=== PATIENT | male | born 1960 | race African-American/Black ===

== ENCOUNTER 2018-05-09 12:59 | Inpatient (IN) | payer MEDICARE, OTHER, MEDICAID ==
[~2018-05-09] VITALS: Ht 152.4 cm; Wt 61.2 kg
[2018-05-09] VITALS (39 sets, daily range): BP systolic 74–145; BP diastolic 30–77
--- NOTE | ~2018-05-09 | EEG ---
[address] [address] EEG STUDY REPORT Name: GENIAERNESTO Room: [address] IN M.R.#: [id number] Admission: 05/09/18 Attend Phys: Maurice Gomez MD Discharge: Date of : 62 Report #: [id number] THIS REPORT FOR: //name// CC: Maurice Gomez [facility] DATE OF SERVICE: 05/17/2018 This patient's EEG was done for comparison. EEG was done by placing the electrode by standard 10-20 system of electrode placement. Both referential and sequential montages were used for recording. Background activity in this patient's EEG is about 6 Hertz and 30 microvolt. On the left side, the patient has periodic lateralizing epileptiform discharges. Photic stimulation is unremarkable. IMPRESSION: 1. Periodic lateralizing epileptiform discharges on the left side, which may be traced better, but still present in significant amount. 2. Generalized slowing consistent with encephalopathy, although that is a nonspecific finding. Thank you very much for this referral. Clinical correlation is recommended. By: 1503 [id number] Capmos MD /nt
[2018-05-09 13:18] LABS: BE -21.8 mmol/L (-2 to +3); PCO2 20.2 mmHg (35.0-45.0); PO2 > 488.8 mmHg (75.0-100.0); pH 7.089 (7.340-7.450)
[2018-05-09 13:51] LABS: MCH 30.8 pg (26.0-34.0); MCHC 28.8 g/dL (28.0-37.0); MCV 106.8 fL (80.0-100.0); NUCLEATED RBCS 0 /100WBC; PLATELET COUNT* 164 thou/uL (150-400); RBC 1.65 mil/uL (4.50-6.00); RDW-CV 19.7 % (10.5-14.5); WBC 9.5 thou/uL (4.0-11.0)
[2018-05-09 13:52] LABS: URINE BILIRUBIN NEGATIVE (Negative); URINE BLOOD TRACE (Negative); URINE CLARITY CLEAR; URINE COLOR YELLOW; URINE GLUCOSE-RANDOM 1+ (Negative); URINE KETONES NEGATIVE (Negative); URINE LEUKOCYTES-REFLEX NEGATIVE (Negative); URINE NITRITE-REFLEX NEGATIVE (Negative); URINE PROTEIN 2+ (Negative); URINE UROBILINOGEN 0.2 E.U./dl (0.2-1.0)
[2018-05-09 13:55] LABS: HEMATOCRIT 17.6 % (42.0-52.0); HEMOGLOBIN 5.1 gm/dL (14.0-18.0)
[2018-05-09 14:05] LABS: SQUAMOUS >10 Many /LPF (0-3)
[2018-05-09 14:06] LABS: BACTERIA-REFLEX 1-9 Few /HPF (None Seen); CASTS None Seen /LPF (None Seen); CRYSTALS None Seen /LPF (None Seen); MUCUS 4-6 Moderate strn/LPF (None Seen); RENAL EPITHELIAL CELLS 4-10 Moderate /LPF (None Seen); URINE RBC 3-10 Few /HPF (0-2); URINE WBC-REFLEX 0-5 Rare /HPF (0-5)
[2018-05-09 14:09] LABS: ALKALINE PHOSPHATASE 293 U/L (46-116); BUN 1 mg/dL (7-18); CHLORIDE 100 mmol/L (98-107); NT-PRO BRAIN NAT PEPTIDE > 35000 pg/mL (<300); SGOT 522 U/L (15-37); SGPT 202 U/L (30-65); SODIUM 142 mmol/L (136-145); TOTAL BILIRUBIN 1.1 mg/dL (<0.1-1.0); TOTAL PROTEIN 5.5 g/dL (6.4-8.2); TROPONIN-I LEVEL 0.36 ng/mL (<0.06)
[2018-05-09 15:10] LABS: ANION GAP 32 mmol/L (7-16); CREATININE < 0.1 mg/dL (0.6-1.3)
[2018-05-09 15:11] LABS: ALBUMIN < 0.6 g/dL (3.4-5.0)
[2018-05-09 15:15] LABS: CO2 10 mmol/L (21-32)
[2018-05-09 15:16] LABS: CALCIUM < 5.0 mg/dL (8.5-10.1); GLUCOSE < 1 mg/dL (70-99)
[2018-05-09 15:26] LABS: APTT 41.8 Seconds (25.0-31.3); INR 2.2; PROTIME 22.1 Seconds (9.20-11.50)
[2018-05-09 15:32] LABS: ABSOLUTE LYMPHOCYTES 0.7 thou/uL (0.8-5.3); ABSOLUTE MONOCYTES 1.1 thou/uL (0.0-1.2); ABSOLUTE NEUTROPHILS 7.7 thou/uL (1.6-8.1); METAMYELOCYTES 1 %; PLATELET ESTIMATE ADEQUATE
[2018-05-09 15:33] LABS: ANISOCYTOSIS 2+; MACROCYTES 1+; POLYCHROMASIA 1+
[2018-05-09 15:34] LABS: BURR CELLS 2+; OVALOCYTES 1+
[2018-05-09 15:34] LABS: CREATININE 7.8 mg/dL (0.6-1.3)
[2018-05-09 15:37] LABS: CALCIUM 8.5 mg/dL (8.5-10.1)
[2018-05-09 16:31] LABS: AMP/METHAMP Negative (Negative); BARBITURATES Negative (Negative); BENZODIAZEPINES POSITIVE (Negative); COCAINE POSITIVE (Negative); METHADONE Negative (Negative); OPIATES Negative (Negative); PCP Negative (Negative); THC Negative (Negative)
[2018-05-09 16:36] LABS: HCO3 6.2 mmol/L (22.0-26.0); PCO2 17.9 mmHg (35.0-45.0); PO2 278.9 mmHg (75.0-100.0)
--- NOTE | 2018-05-09 17:37 | EKG ---
[place] [address] ELECTROCARDIOGRAM REPORT Name: ERNESTO CORMIER Room: [address] ADM IN M.R.#: [id number] Admission: 05/09/18 Attend Phys: Maurice Gomez MD Discharge: Date of : 62 Report #: [id number] THIS REPORT FOR: //name// [facility] ED Test Date: 2018-05-09 Test Time: 13:25:01 Pat Name: ERNESTO CORMIER Department: Room: [facility] Gender: M Sharepoint Application Architect: GEOVANNA : 1960 Requested By: Jigar Guerra Order Number: [id number] MD: Konrad Du Measurements Intervals [place] Rate: 82 P: 86 [place]: 165 QRS: 70 QRSD: 95 T: -87 QT: 444 QTc: 519 Interpretive Statements Sinus rhythm Repol abnrm suggests ischemia, anterolateral Prolonged QT interval No previous ECG available for comparison Electronically Signed On 05-09-2018 17:37:40 SEARCH MARKETING COORDINATOR by Konrad Du [email or web address] <ELECTRONICALLY SIGNED> By: Konrad Du MD, [facility] 05/09/18 1737 1325 1325 Konrad uD MD, [facility] /EPI
--- NOTE | 2018-05-09 18:55 | NUR ---
PATIENT ADMITTED TO THE UNIT AT 1540. PATIENT NON-REPSONSIVE ON 1MG VERSED UPON ARRIVAL. PUPILS 3+ AND VERY SLUGGISH. PATIENT WAS SUPPOSED TO BE AT DIALYSIS AT [facility] AND WHEN HE DID NOT SHOW, THE DIALYSIS CENTER CALLED THE POLICE DEPARTMENT, WHO FOUND PATIENT DOWN IN HIS HOME. PATIENT POSITIVE FOR GI BLEED. STAT GI CONSULT CALLED IN ER. PATIENT IS NOW RECIEVING SECOND UNIT OF TWO UNITS OF BLOOD. STAT PROTONIX GTT IN ER. DR TATUM PAGED TO CONTINUE THOSE ORDERS, BUT THIS NURSE HAS NOT RECIEVED CALL BACK YET. PATIENT DIALYZING AT THIS TIME. HYPOTENSIVE, ON LEVOPHED AT MAX TO KEEP SYSTOLIC >90 AND MAP >65. SECOND PRESSOR ON STANDBY IF NEEDED. PATIENT BED LOWERED AND LOCKED. SCDS ON FOR PHARMACOLOGIC CONTRAINDICATION. PATIENT HAS TWO DAUGHTERS, CLARK AND ROSEY. CLARK IS DESIGNATED PATIENT PHOTOVOLTAIC SUBCONTRACTOR BECAUSE SHE LIVES CLOSE TO HOSPITAL, BUT BOTH WISH TO BE CALLED IN AN EMERGENCY. FAMILY UPDATED AND AGREES WITH CURRENT PLAN OF CARE. DENIES FURTHER QUESTIONS AT THIS TIME.
[2018-05-09 21:59] LABS: BE -3.8 mmol/L (-2 to +3)
[2018-05-09 22:03] LABS: PCO2 < 17.0 mmHg (35.0-45.0); PO2 207.8 mmHg (75.0-100.0); pH 7.627 (7.340-7.450)
--- NOTE | 2018-05-09 22:34 | NUR ---
CRITICAL ABG RESULTS RECEIVED, DR HERNANDEZ NOTIFIED. ORDER RECEIVED TO DECREASE VENT AC TO 14 AND DRAW ABG'S 30 MINUTES POST RATE CHANGE, CALL DR HERNANDEZ IF PH REMAINS >7.5. NEFTALI RT AT BEDSIDE CHANGING RATE AT THIS TIME.
--- NOTE | 2018-05-09 23:18 | NUR ---
HR NOTED TO BE IRREGULAR, EKG OBTAINED SHOWING A-FIB RATE 110-[address] KEMP NOTIFIED, NO NEW ORDERS. STATES IT IS LIKELY R/T LEVOPHED.
[2018-05-09 23:36] LABS: MCH 30.3 pg (26.0-34.0)
[2018-05-09 23:37] LABS: MPV 9.7 fl. (7.2-11.1); RBC 2.09 mil/uL (4.50-6.00); RDW-CV 17.4 % (10.5-14.5)
[2018-05-09 23:40] LABS: MCV 89.2 fL (80.0-100.0)
[2018-05-09 23:43] LABS: HEMATOCRIT 18.7 % (42.0-52.0); HEMOGLOBIN 6.4 gm/dL (14.0-18.0)
[2018-05-10] VITALS (56 sets, daily range): BP systolic 87–144; BP diastolic 21–71
[2018-05-10 00:02] LABS: ALBUMIN 1.7 g/dL (3.4-5.0); CALCIUM 7.6 mg/dL (8.5-10.1); CREATININE 3.8 mg/dL (0.6-1.3); POTASSIUM 3.8 mmol/L (3.5-5.1); TOTAL BILIRUBIN 1.8 mg/dL (<0.1-1.0)
[2018-05-10 00:27] LABS: BE -8.4 mmol/L (-2 to +3); HCO3 13.1 mmol/L (22.0-26.0); pH 7.567 (7.340-7.450)
[2018-05-10 00:28] LABS: PCO2 < 17.0 mmHg (35.0-45.0)
[2018-05-10 00:29] LABS: PO2 198.9 mmHg (75.0-100.0)
--- NOTE | 2018-05-10 01:14 | NUR ---
CRITICAL HBG 6.[address] TATUM, ORDER TO TRANSFUSE ONE UNIT PRBC'S.
[2018-05-10 05:45] LABS: ABSOLUTE BASOPHILS 0.1 thou/uL (0.0-0.2); ABSOLUTE EOSINOPHILS 0.1 thou/uL (0.0-0.7); ABSOLUTE LYMPHOCYTES 0.6 thou/uL (0.8-5.3); ABSOLUTE MONOCYTES 0.7 thou/uL (0.0-1.2); ABSOLUTE NEUTROPHILS 8.3 thou/uL (1.6-8.1); BASOPHILS 0.6 %; EOSINOPHILS 1.5 %; HEMATOCRIT 21.9 % (42.0-52.0); HEMOGLOBIN 7.4 gm/dL (14.0-18.0); LYMPHOCYTES 6.4 %; MCH 30.5 pg (26.0-34.0); MCHC 33.7 g/dL (28.0-37.0); MCV 90.5 fL (80.0-100.0); MONOCYTES 6.7 %; MPV 9.8 fl. (7.2-11.1); NUCLEATED RBCS 1 /100WBC; PLATELET COUNT* 72 thou/uL (150-400); POLYS 84.8 %; RBC 2.42 mil/uL (4.50-6.00); RDW-CV 17.2 % (10.5-14.5); WBC 9.8 thou/uL (4.0-11.0)
[2018-05-10 05:47] LABS: CALCIUM 7.8 mg/dL (8.5-10.1); POTASSIUM 3.8 mmol/L (3.5-5.1)
[2018-05-10 06:37] LABS: BE -13.6 mmol/L (-2 to +3); pH 7.405 (7.340-7.450)
[2018-05-10 06:39] LABS: HCO3 9.4 mmol/L (22.0-26.0); PCO2 < 17.0 mmHg (35.0-45.0); PO2 184.9 mmHg (75.0-100.0)
[2018-05-10 06:51] LABS: INR 2.6; PROTIME 26.8 Seconds (9.20-11.50)
--- NOTE | 2018-05-10 07:27 | NUR ---
SPOKE TO DR MENDOZA THIS AM, ORDERS RECEIVED FOR LABS AND EGD TODAY. ALL CRITICAL LABS CALLED TO APPROPRIATE PHYSICIANS. HYPOGLYCEMIA TREATED WITH D50 X3. COMPLETE BED BATH GIVEN. BLOOD OOZING FROM CENTRAL LINE AND PERIPHERAL IV'S, DRESSING CHANGED. PT NOTED TO HAVE LACERATION TO OCCIPITAL SCALP, NOT BLEEDING AND WELL APPROXIMATED HOWEVER IT DOES GAPE WITH PALPATION. WOUND CLEANED AND STERI STRIPS APPLIED. PT HAS BEEN TURNED Q2HR THROUGHOUT THE SHIFT.
--- NOTE | 2018-05-10 07:56 | CON ---
[address] [address] CONSULTATION Name: GENIAERNESTO Room: [address] ADM IN M.R.#: [id number] Admission: 05/09/18 Attend Phys: Maurice Gomez MD Discharge: Date of : 62 Report #: [id number] THIS REPORT FOR: //name// CC: Maurice Gomez FAM unknown [facility] DATE OF SERVICE: 05/09/2018 Pulmonary Consultation LOCATION: I saw him in emergency room, department 2 while he was on the ventilator. HISTORY OF PRESENT ILLNESS: The patient is a 57-year-old -Thai male who is chronically on 3 times a week dialysis, presented to the emergency room department after EMS. He was found unresponsive in his apartment by the police department. The patient did not show for his dialysis appointment, so the family called police department. They went to the apartment, found him unresponsive. En route to the emergency room department, EMS performed resuscitation, although he did have a blood pressure of 110/60. He was being bagged every 5 seconds and blood sugar was 50. Pulse was never lost. When he reached the emergency room department, he had GI bleeding, he had nausea and vomiting. He also had rectal GI bleeding, which appeared to be fresh bright red blood. Hemoglobin was 5. Blood pressure still 110/60s and he was mostly in a sinus rhythm in the 80s and 90s. There was one episode of maybe accelerated junctional rhythm when I was seen and there was sinus rhythm and again not on any pressors. He was unresponsive, so he was intubated with a 7.5 oral endotracheal tube. His pupils are midpoint and not reactive, so we cannot do a CT of the head on him at this time. PAST MEDICAL HISTORY: Obtained from the emergency room department physician, the family was not present at least at this time, included history of having hernia repair. He has had a history of hep C, diabetes mellitus. He has been on dialysis with an AV fistula for several years, it appears. He also has a history of hypertension. ALLERGIES: He has no known medical allergies. OUTPATIENT MEDICATIONS: Not known yet at this time. He is just on IV fluids currently. He is going to be started on IV bicarbonate drip. FAMILY HISTORY: Noncontributory at this time. SOCIAL HISTORY: The patient lives alone in his apartment. His smoking and drinking history is not noted. He has been on dialysis again 3 [place] [address] CONSULTATION Name: ERNESTO CORMIER Room: [address] IN [facility]#: [id number] Admission: 05/09/18 Attend Phys: Maurice Gomez MD Discharge: Date of : 62 Report #: [id number] We are not certain where he was on dialysis. REVIEW OF SYSTEMS: A 14-point review of systems was reviewed from family and then negative except for the pertinent positives. PHYSICAL EXAMINATION: GENERAL: An ill-appearing 57-year-old male who is thin and slight of build, who is unresponsive on the ventilator. VITAL SIGNS: Currently, his blood pressure is between 110-120/61, his heart rate is 84-88 and regular, respirations were 16. We have increased his ventilator rate to 20s now, his backup rate is 20 at this time. He was afebrile. He appears to be 6 feet tall and weight is 59 kg or 130 pounds, BMI is 18. HEENT: Pupils are midpoint to small and they are not reactive at this time. He has minimal gag and swallow with manipulation of the ET tube. He does not withdraw his hands to commands. CHEST: Shows clear breath sounds without wheeze or rhonchi. CARDIOVASCULAR: Shows diminished heart tones, regular rate and rhythm. Heart rate is 84. ABDOMEN: Soft, without masses or megaly. EXTREMITIES: There is trace edema. No cyanosis or clubbing. He has an AV fistula in his left forearm. Again, he had melena and hematemesis noted in his bed. That was being cleaned up. LABORATORY DATA: His hemoglobin was 5 with a hematocrit of 17, white count is 9500, MCV is 106, and platelets were 164,000. Differential is pending. Coags are still pending as are electrolytes and his blood gas drawn, left femoral, at 13:03 on 100%, 450, rate of 12 at that time and PEEP of 5, shows a pO2 of 480, pH of 7.089, pCO2 is 20 and a bicarbonate of 6 and a base excess of negative 20. Again, repeat blood gas and repeat chest x-ray are pending after CT of the head. IMPRESSION: 1. Acute respiratory failure, probably related to his decreased mental status, either related to cerebral hemorrhage or gastrointestinal bleeding and hypotension. 2. Chronic kidney failure, stage 4, on chronic hemodialysis. 3. Anemia, related to acute or chronic gastrointestinal bleeding 4. History of hepatitis C. 5. Diabetes. 6. History of hypertension. PLAN: We will give him IV bicarbonate drip. Follow up serial H and Hs. We will get a followup chest x-ray and blood gas after he gets done [place] [address] CONSULTATION Name: ERNESTO CORMIER Room: [address] IN [facility]#: [id number] Admission: 05/09/18 Attend Phys: Maurice Gomez MD Discharge: Date of : 62 Report #: [id number] the head to rule out any intracerebral hemorrhage. His prognosis is somewhat guarded. The emergency room physicians have talked to the family. I have not had a chance to talk with the family yet. He may need a unit or two of blood here once he stabilizes. Emergency room department physician are thinking about putting a triple lumen catheter, which I think would be a good idea. Also, I have to find out his old records and see where he was dialyzed and we will see if our [facility] knows him or if it from the other group. This has been a 38-minute critical care consult. <ELECTRONICALLY SIGNED> By: Dash Iglesias MD 05/10/18 0756 1417 0227Arobyn Iglesias MD /yue
--- NOTE | 2018-05-10 10:58 | NUR ---
Nutrition: Consult for "HD pt, DM, unresponsive." Pt missed HD and was found unresponsive. Eric 11. On vent now, HD last NOC. Not sedated. Received PRBCs. Wt: 130#. NPO. Alb 1.7, prealb 11.1, Hgb 7.4, BNP 31104. Will await POC, 05/11/18.
--- NOTE | 2018-05-10 11:35 | EKG ---
[place] [address] ELECTROCARDIOGRAM REPORT Name: ERNESTO CORMIER Room: [address] ADM IN M.R.#: [id number] Admission: 05/09/18 Attend Phys: Maurice Gomez MD Discharge: Date of : 62 Report #: [id number] THIS REPORT FOR: //name// [facility] Test Date: 2018-05-09 Test Time: 22:52:17 Pat Name: ERNESTO CORMIER Department: Room: [address] Gender: M Spiritual Advisor: Dangelo Leslie : 1960 Requested By: Maurice Gomez Order Number: [id number] Reading MD: Cristopher Wright Measurements Intervals [place] Rate: 114 P: 0 [place]: 90 QRS: 45 QRSD: 85 T: 244 QT: 317 QTc: 437 Interpretive Statements Sinus tachycardia Multiform ventricular premature complexes Nonspecific repol abnormality, diffuse leads Baseline wander in lead(s) V3 Compared to ECG 05/09/2018 13:25:01 Ventricular premature complex(es) now present Sinus rhythm no longer present Possible ischemia no longer present Prolonged QT interval no longer present Electronically Signed On 05-10-2018 11:35:06 PRESSURISED CONTAINER FILLER by Cristopher Wright [email or web address] <ELECTRONICALLY SIGNED> By: Cristopher Wright MD, [facility] 05/10/18 1135 51 225 Cristopher Wright MD, FAC /EPI
--- NOTE | 2018-05-10 11:35 | EKG ---
[place] [address] ELECTROCARDIOGRAM REPORT Name: ERNESTO CORMIER Room: [address] ADM IN M.R.#: [id number] Admission: 05/09/18 Attend Phys: Maurice Gomez MD Discharge: Date of : 62 Report #: [id number] THIS REPORT FOR: //name// [facility] Test Date: 2018-05-09 Test Time: 22:53:05 Pat Name: ERNESTO CORMIER Department: Room: [address] Gender: M Relief Operator: Dangelo Leslie : 1960 Requested By: Maurice Gomez Order Number: [id number] Reading MD: Cristopher Wright Measurements Intervals [place] Rate: 113 P: [place]: QRS: 45 QRSD: 78 T: 246 QT: 422 QTc: 579 Interpretive Statements NSR Paired ventricular premature complexes Repol abnrm suggests ischemia, diffuse leads Prolonged QT interval Compared to ECG 05/09/2018 13:25:01 Ventricular premature complex(es) now present Sinus rhythm no longer present Possible ischemia still present Electronically Signed On 05-10-2018 11:35:27 LINE COOK by Cristopher Wright [email or web address] <ELECTRONICALLY SIGNED> By: Cristopher Wright MD, FACC 05/10/18 1135 2253 2253 Cristopher Wright MD, FACC /EPI
--- NOTE | 2018-05-10 12:08 | 2DMMODE ---
[place] [address] 2 D/M-MODE ECHOCARDIOGRAM Name: ERNESTO CORMIER Room: [address] ADM IN [facility]#: [id number] Admission: 05/09/18 Attend Phys: Maurice Gomez, Discharge: Date of : 62 Date of Service: 05/10/18 1208 Report #: [id number] THIS REPORT FOR: //name// APPROVED REPORT Study performed: 05/10/2018 10:10:12 EXAM: Comprehensive 2D, Doppler, and color-flow Echocardiogram Patient Location: In-Patient Room #: [facility] BSA: 1.55 HR: 100 bpm BP: 106/56 mmHg Other Information Study Quality: Good Indications Atrial Fibrillation 2D Dimensions IVSd: 12.80 (7-11mm) LVOT Diam: 20.03 (18-24mm) LVDd: 53.22 mm PWd: 12.67 (7-11mm) Ascending Ao: 29.58 (22-36mm) LVDs: 39.87 (25-40mm) Aortic Root: 33.52 mm Volumes Left Atrial Volume (Systole) LA ESV Index: 51.50 mL/m2 Aortic Valve AoV Peak Maxi.: 1.01 m/s AO Peak Gr.: 4.12 mmHg LVOT Max P.29 mmHg AO Mean Gr.: 2.24 mmHg LVOT Mean P.29 mmHg LVOT Max V: 0.76 m/s AO V2 VTI: 11.67 cm LVOT Mean V: 0.54 m/s ASHLEY (VTI): 2.83 cm2 LVOT V1 VTI: 10.47 cm Mitral Valve E/A Ratio: 2.87 MV Decel. Time: 122.24 ms MV E Max Maxi.: 1.05 m/s MV PHT: 35.45 [place] [address] 2 D/M-MODE ECHOCARDIOGRAM Name: ERNESTO CORMIER Room: [address] IN .R.#: [id number] Admission: 05/09/18 Attend Phys: Maurice Gomez, Discharge: Date of : 62 Date of Service: 05/10/18 1208 Report #: [id number] MVA (PHT): 6.21 cm2 TDI E/Lateral E': 7.50 E/Medial E': 15.00 Medial E' Maxi.: 0.07 m/s Lateral E' Maxi.: 0.14 m/s Pulmonary Valve PV Peak Maxi.: 0.78 m/s PV Peak Gr.: 2.45 mmHg Tricuspid Valve RAP Estimate: 5.00 mmHg TR Peak Gr.: 33.00 mmHg RVSP: 38.00 mmHg PA Pressure: 38.00 mmHg Left Ventricle The left ventricle is normal size. There is global hypokinesis of the left ventricle. Paradoxical septal motion consistent with conduction abnormality. Mild concentric left ventricular hypertrophy. Left ventricular systolic function is normal. The left ventricular ejection fraction is within the normal range. LVEF is 40-45%. Grade III - reversible restrictive diastolic dysfunction. Right Ventricle The right ventricle is normal size. The right ventricular systolic function is normal. Atria Left atrium is dilated. The right atrium size is normal. Aortic Valve The aortic valve is normal in structure. Mild aortic regurgitation. There is no aortic valvular stenosis. Mitral Valve Mitral valve leaflets are moderately thickened. Moderate to severe mitral regurgitation.Directed towards free wall. No evidence of mitral valve stenosis. There is no evidence of mitral valve prolapse. Tricuspid Valve The tricuspid valve is normal in structure. Moderate tricuspid regurgitation. Pulmonic Valve The pulmonary valve is normal in structure. [place] [address] 2 D/M-MODE ECHOCARDIOGRAM Name: ERNESTO CORMIER Room: [address] IN [facility]#: [id number] Admission: 05/09/18 Attend Phys: Maurice Gomez, Discharge: Date of : 62 Date of Service: 05/10/18 1208 Report #: [id number] regurgitation. Great Vessels The aortic root is normal in size. IVC is normal in size and collapses >50% with inspiration. Pericardium There is no pericardial effusion. <Conclusion> LVEF is 40-45%. There is global hypokinesis of the left ventricle. Paradoxical septal motion consistent with conduction abnormality. The left ventricle is normal size. Mild concentric left ventricular hypertrophy. Left atrium is dilated. Grade III - reversible restrictive diastolic dysfunction. There is no aortic valvular stenosis. Mild aortic regurgitation. Mitral valve leaflets are moderately thickened. Moderate to severe mitral regurgitation.Directed towards free wall. No evidence of mitral valve stenosis. Moderate tricuspid regurgitation. There is no pericardial effusion. <ELECTRONICALLY SIGNED> By: Cristopher Wright MD, FACC 05/10/181207 07 07 Cristopher Wright MD, FACC /INF
[2018-05-10 12:48] LABS: HEMATOCRIT 22.1 % (42.0-52.0); HEMOGLOBIN 7.4 gm/dL (14.0-18.0)
[2018-05-10 13:52] LABS: INR 2.7; PROTIME 27.5 Seconds (9.20-11.50)
[2018-05-10 14:25] LABS: FIBRINOGEN 111 mg/dL (200-340)
--- NOTE | 2018-05-10 15:35 | NUR ---
WOUND CARE NOTE: CONSULT RECEIVED FOR LOW DEEJAY. CARE PLAN IN PLACE. LOW AIR LOSS FUNCTION IN PLACE ON BED. TURN Q2 HOUR INTERVENTION IN PLACE. WEDGES IN ROOM AND IN USE. RECOMMEND TURN Q2 HOURS-USE WEDGES CONTINUE WIHT ANA PAULA MATTRESS KEEP HOB <30 DEGREES IF PATIENT TOLERATES LIMIT LAYERS OF LINEN UNDER PATIENT NO BRIEFS IN BED
[2018-05-10 15:39] LABS: BE -10.9 mmol/L (-2 to +3); pH 7.467 (7.340-7.450)
[2018-05-10 15:42] LABS: HCO3 11.3 mmol/L (22.0-26.0); PCO2 < 17.0 mmHg (35.0-45.0); PO2 > 488.8 mmHg (75.0-100.0)
[2018-05-10 19:55] LABS: HEMATOCRIT 24.8 % (42.0-52.0); HEMOGLOBIN 8.4 gm/dL (14.0-18.0)
--- NOTE | 2018-05-10 20:14 | NUR ---
pt assessment as charted. vss throughout shift. versed turned off at 0800 to monitor neuro status. Levophed still running at same rate. seizure activity noted this afternoon. Neurology consulted and EEG obtained. Versed restarted. mtn notified for GCS of 3. Please contact MTN if any decrease in neurological status.
--- NOTE | 2018-05-10 22:05 | NUR ---
RESTRAINTS REMOVED AT 2200. PATIENT MAKING NO ATTEMPTS TO REMOVE MEDICAL EQUIPMENTS. PATIENT CALM, NO PURPOSEFUL MOVEMENT. CIRCULATION ASSESSED. NO REDNESS, EDEMA, SKIN BREAKDOWN BILATERALLY.
[2018-05-11] VITALS (45 sets, daily range): BP systolic 88–147; BP diastolic 43–76
[2018-05-11 01:04] LABS: APTT 40.5 Seconds (25.0-31.3); FIBRINOGEN 120 mg/dL (200-340); INR 2.9; PROTIME 29.1 Seconds (9.20-11.50)
[2018-05-11 03:49] LABS: HEMATOCRIT 24.8 % (42.0-52.0); HEMOGLOBIN 8.4 gm/dL (14.0-18.0); MCH 30.2 pg (26.0-34.0); NUCLEATED RBCS 1 /100WBC; PLATELET COUNT* 86 thou/uL (150-400); RBC 2.78 mil/uL (4.50-6.00); RDW-CV 17.4 % (10.5-14.5); WBC 14.4 thou/uL (4.0-11.0)
[2018-05-11 04:26] LABS: ALBUMIN 1.8 g/dL (3.4-5.0); CALCIUM 7.9 mg/dL (8.5-10.1); CREATININE 4.6 mg/dL (0.6-1.3); TOTAL BILIRUBIN 3.2 mg/dL (<0.1-1.0); TOTAL PROTEIN 5.2 g/dL (6.4-8.2)
[2018-05-11 05:30] LABS: ABSOLUTE LYMPHOCYTES 0.4 thou/uL (0.8-5.3); ANISOCYTOSIS 1+; LARGE PLATELETS RARE; PLATELET ESTIMATE DECREASED; POIKILOCYTOSIS 1+
--- NOTE | 2018-05-11 06:50 | NUR ---
STABLE ON VENT. LEVOPHED GTT TITRATED TO KEEP MAP>65. MINIMAL DARK STOOLS. HB REMAINS UNCHANGED. VERSED GTT MAINTAINED PER PHYSICIAN ORDER. PATIENT TURNED Q2 THROUGHOUT THE SHIFT.
--- NOTE | 2018-05-11 08:48 | CON ---
[address] [address] CONSULTATION Name: ERNESTO CORMIER Room: [address] IN M.R.#: [id number] Admission: 05/09/18 Attend Phys: Maurice Gomez MD Discharge: Date of : 62 Report #: [id number] THIS REPORT FOR: //name// CC: Maurice Gomez [facility] DATE OF SERVICE: 05/10/2018 REASON FOR CONSULTATION: Coagulopathy. INDICATIONS: A 57-year-old male who was admitted to the Intensive Care Unit after he was found unresponsive by the police. He missed his dialysis. He was found in a pool of blood. The patient was admitted to the Intensive Care Unit and he was found to be in renal failure, active GI bleeding and hypotensive with hemorrhagic shock. The patient's hemoglobin upon admission was 5.1 and the most recent one was 7.4. He also had elevated PT and PTT due to end-stage liver disease. In addition to that, his creatinine has been 4, platelet count started to drop at 72, it was 174 yesterday. The patient was on the vent, pressors. I discussed with the RN the update about his condition, no family members were available. PAST MEDICAL HISTORY: End-stage renal disease, hepatitis, liver cirrhosis, diabetes mellitus, hypertension. MEDICATIONS: Per admission list. ALLERGIES: No known allergies. FAMILY HISTORY: Noncontributory. SOCIAL HISTORY: He lives alone. Smoking history was not noted. He has been on dialysis 3 times a week. REVIEW OF SYSTEMS: Unable to be obtained. PHYSICAL EXAMINATION: VITAL SIGNS: Today, pulse is 93, respirations 20, blood pressure is 108/55. FiO2 is 100% on the vent. GENERAL: The patient was unresponsive. He was sedated. LUNGS: Coarse breathing sounds. ABDOMEN: Soft, nondistended. EXTREMITIES: No edema, no cyanosis, no clubbing. LABORATORY DATA: Today, WBC 9.8, hemoglobin most recently 7.4, platelets 72. PT 26.8, PTT is 41.8, INR is 2.6. Creatinine 4.0, lactic acid 22.9, [place] [address] CONSULTATION Name: ERNESTO CORMIER Room: [address] IN [facility]#: [id number] Admission: 05/09/18 Attend Phys: Maurice Gomez MD Discharge: Date of : 62 Report #: [id number] is 1.5, AST is 10,806; ALT is 2854, alkaline phosphatase 258. Troponin 1.75. Albumin 1.7. IMAGING: Head CT scan was negative for any acute intracranial hemorrhage. ASSESSMENT AND PLAN: 1. A 57-year-old male who was admitted because of active gastrointestinal bleed. The patient had also liver cirrhosis with end-stage renal failure. At this point, he is being treated with supportive care including vent support, vasopressors and aggressive transfusion. I do expect that the patient will require more PRBC. 2. Platelet count due to coagulopathy with blood transfusion and previous liver disease. We will aim to keep his platelet count above the current point of 50,000 due to active bleeding. We will obtain a DIC profile every 12 hours. Poor prognosis. <ELECTRONICALLY SIGNED> By: Ghassan Richards MD 05/11/18 0848 1015 [id number] Richards MD /nt
--- NOTE | 2018-05-11 10:15 | NUR ---
INTERDISICPLINARY ROUNDS: NO FAMILY PRESENT. PT GETTING DIALYSIS. PER NURSE, PT GOES TO [facility]. HE ALSO GETS PERIODIC [facility]IS AT [facility]. PT FOUND DOWN IN HIS APT, MISSED DIALYSIS [place]. HAS 2 DTRS CLARK AND ROSEY. REMAINS ON VENT. WILL ELI
[2018-05-11 10:19] LABS: BE -4.4 mmol/L (-2 to +3); HCO3 18.8 mmol/L (22.0-26.0); PCO2 27.8 mmHg (35.0-45.0); pH 7.448 (7.340-7.450)
--- NOTE | 2018-05-11 12:32 | NUR ---
ASSUMED PT CARE 0730. PT HAS CORNEAL REFLEX AND REFLEX OF RIGHT FOOT. LEVOPHED TITRATED PER PROTOCOL. PT REPOSITIONED. AFEBRILE. FRIENDS OF PATIENT CAME TO VISIT. THEY REPORTED THEY HAD BEEN TRYING TO CALL PT OVER THE WEEKEND AND COULD NOT GET ANY RESPONSE. PT TO HAVE DIALYSIS TODAY. NEURO ORDERED EEG. PER NEURO TITRATE VERSED DOWN AND IF PT SEIZUES TURN VERSED BACK UP AND NOTIFIEY NEUROLOGY. WILL CONTINUE PLAN OF CARE.
--- NOTE | 2018-05-11 13:32 | NUR ---
GAVE UPDATE TO DTRS ROSEY AND CLARK VIA PHONE. DTR CLARK REQUESTED TO TALK TO DOCTOR ABOUT PROGNOSIS. DR TATUM NOTIFIED AND DR RIBEIRO NOTIFIED.
[2018-05-11 14:15] LABS: APTT 40.1 Seconds (25.0-31.3); INR 2.8; PROTIME 28.4 Seconds (9.20-11.50)
--- NOTE | 2018-05-11 18:35 | NUR ---
LEVOPHED TITRATED PER PROTOCOL. DTRS AT BEDSIDE.
[2018-05-12] VITALS (29 sets, daily range): BP systolic 95–155; BP diastolic 48–72
[2018-05-12 06:48] LABS: BE 4.9 mmol/L (-2 to +3); HCO3 28.1 mmol/L (22.0-26.0); PCO2 35.8 mmHg (35.0-45.0); pH 7.512 (7.340-7.450)
[2018-05-12 06:55] LABS: APTT 36.7 Seconds (25.0-31.3); FIBRINOGEN 131 mg/dL (200-340); INR 2.5; PROTIME 25.2 Seconds (9.20-11.50)
[2018-05-12 08:28] LABS: ALBUMIN 1.7 g/dL (3.4-5.0); CALCIUM 7.7 mg/dL (8.5-10.1); MAGNESIUM 1.7 mg/dL (1.8-2.4); POTASSIUM 3.6 mmol/L (3.5-5.1); TOTAL BILIRUBIN 3.4 mg/dL (<0.1-1.0); TOTAL PROTEIN 5.1 g/dL (6.4-8.2)
--- NOTE | 2018-05-12 11:30 | NUR ---
MET WITH PT'S DTR/ROSEY AND HIS MOTHER/ELLIE ALMAGUER AT BEDSIDE. ROSEY STATED THAT SHE WAS NOT FAMILIAR WITH PT'S DAILY ACTIVIES OR HIS DIALYSIS CENTER PT WAS 'SECRETIVE' AND KEPT SOME ISSUES FROM HIS FAMILY. SHE THOUGHT THAT HE WENT TO A [facility] NEAR [place]. PT'S MOTHER CONCERNED ABOUT PT'S COMFORT AND WAS MAKING SURE HE WAS COVERED UP AND WARM. CONTACTED [facility] [phone], SPOKE WITH ANETA. SHE STATED HE IS THEIR PT, MWF 2ND SHIFT, USES [employer] [facility] AND IS COMPLAINT WITH DIALYSIS. DR FRANCISCO PLACED CALL TO PT'S DTR/CLARK TO GIVE UPDATE. CM TO FOLLOW
--- NOTE | 2018-05-12 14:14 | NUR ---
PT OPENING EYES AT TIMES. NOT TRACKING. NOT FOLLOWING COMMANDS. GAG REFLEX INTACT. AT TIMES MOVING FEET. VSS. AFEBRILE. PT HAS SMEAR STOOL. FAMILY AT BEDSIDE. MTN CAME TO ASSESS PT. DTR ROSEY SPOKE TO DR RIBEIRO. DR FRANCISCO REPORTS HE CALLED DTRS WITH AN UPDATE. DTR CLARK NUMBER INCORRECT IN [employer]. CONFIRMED AND RE-ENTERED.
--- NOTE | 2018-05-12 15:47 | EKG ---
[place] [address] ELECTROCARDIOGRAM REPORT Name: JOSIRHONDAERNESTO Torres Room: [address] ADM IN M.R.#: [id number] Admission: 05/09/18 Attend Phys: Maurice Gomez MD Discharge: Date of : 62 Report #: [id number] THIS REPORT FOR: //name// Test Date: 2018-05-12 Test Time: 08:39:22 Pat Name: ERNESTO CORMIER Department: Room: [address] Gender: M Scientific Software Developer: : 1960 Requested By: Konrad Du Order Number: [id number] Belen MD: Konrad Du Measurements Intervals [place] Rate: 92 P: 67 [place]: 138 QRS: 46 QRSD: 86 T: 248 QT: 427 QTc: 529 Interpretive Statements Sinus rhythm Probable left atrial enlargement Probable LVH with secondary repol abnrm Prolonged QT interval Compared to ECG 05/09/2018 22:53:05 Ventricular premature complex(es) no longer present rate slowed Electronically Signed On 05-12-2018 15:47:28 IN STORE MARKETER by Konrad Du [email or web address] <ELECTRONICALLY SIGNED> By: Konrad Du MD, [facility] 05/12/18 1547 [id number] [id number] Konrad Du MD, [facility] /EPI
[2018-05-13] VITALS (28 sets, daily range): BP systolic 95–133; BP diastolic 50–72
[2018-05-13 04:37] LABS: ABSOLUTE EOSINOPHILS 0.1 thou/uL (0.0-0.7); ABSOLUTE LYMPHOCYTES 0.9 thou/uL (0.8-5.3); ABSOLUTE MONOCYTES 0.7 thou/uL (0.0-1.2); ABSOLUTE NEUTROPHILS 9.6 thou/uL (1.6-8.1); BASOPHILS 0.2 %; EOSINOPHILS 0.9 %; HEMATOCRIT 26.1 % (42.0-52.0); HEMOGLOBIN 8.9 gm/dL (14.0-18.0); LYMPHOCYTES 7.7 %; MCH 30.2 pg (26.0-34.0); MCHC 33.9 g/dL (28.0-37.0); MCV 88.9 fL (80.0-100.0); MONOCYTES 6.2 %; MPV 9.1 fl. (7.2-11.1); NUCLEATED RBCS 1 /100WBC; PLATELET COUNT* 86 thou/uL (150-400); RBC 2.94 mil/uL (4.50-6.00); RDW-CV 16.8 % (10.5-14.5); WBC 11.3 thou/uL (4.0-11.0)
--- NOTE | 2018-05-13 04:54 | NUR ---
PATIENT SLOWLEY PROGRESSING TOWARDS GOALS. OPENED EYES SEVERAL TIMES WHEN HIS NAME WAS SIAD OR PT WAS BEING TURNED. PT MOVEING HIS LEFT HAND TRYING TO TO REACH FOR ET TUBE. PLACED MITTEN ON HAND. LEFT PUPIL SLUGGISH, RIGHT PUPIL NON REACTIVE. PT NOT ABLE TO TRACK OR FOLLOW COMMANDS. DOES GRIMACE TO PAIN. BP WNL. TOLERATED TUBEFEEDS LOW RESIDUALS CURRENTLY TURNED OFF FOR EXPECTED WEANING TRIAL THIS A.M. PT RECEIVED Q2H TURNS THROUGHOUT SHIFT.
[2018-05-13 05:07] LABS: ALBUMIN 1.6 g/dL (3.4-5.0); CALCIUM 7.6 mg/dL (8.5-10.1); CREATININE 3.9 mg/dL (0.6-1.3); MAGNESIUM 1.8 mg/dL (1.8-2.4); POTASSIUM 3.7 mmol/L (3.5-5.1); TOTAL BILIRUBIN 3.9 mg/dL (<0.1-1.0); TOTAL PROTEIN 4.9 g/dL (6.4-8.2)
--- NOTE | 2018-05-13 10:00 | NUR ---
CONTINUE TO FOLLOW, PT REMAIN ON VENT. PER NURSING, IS RESPONDING MORE TODAY. NO SEIzURES. HAD TTT BUT NOT EXTUBATED. WILL FOLLOW
--- NOTE | 2018-05-13 10:24 | NUR ---
9800 ASSUMED CARE OF PATIENT. PLEASE SEE DOCUMENTED ASSESSMENT. DR NEWBY TO SEE PATIENT. PLAN IS FOR VENT WEANING TRIAL,EEG,DIALYSIS
--- NOTE | 2018-05-13 10:26 | NUR ---
PT DID WELL ON WEANING TRIAL. SPECIALTY DEPARTMENT SUPERVISOR HERE TO RUN TREATMENT
--- NOTE | 2018-05-13 14:51 | NUR ---
1545 DIALYSIS COMPLETED. PT IS NOW IN BILATERAL SOFT WRIST RESTRAINTS TO PRESERVE INTEGRITY OF LINES. WHEN ASKED TO SQUEEZE HANDS, HE NODDED HEAD NO. ALSO DID THIS WITH DIALYSIS NURSE. DAUGHTER HAS BEEN HERE AND SPOKE WITH DR RIBEIRO ON PHONE
--- NOTE | 2018-05-13 15:33 | NUR ---
ORDERS FOR CT OF HEAD NOTED.SPOKE WITH DR NEWBY REGARDING PATIENT STATUS AND NEED FOR SEDATION FOR DOING CT.PT WILL NOD HEAD TO QUESTIONS AND CAN GRAS WITH LEFT HAND ONLY. MOVES RIGHT HAND WITH PURPOSE TOWARDS MOUTH THOUGH IF UNRESTRAINED
--- NOTE | 2018-05-13 16:55 | NUR ---
[address] PER BED WITH RT AND WITH PROPOFOL INFUSING FOR SEDATION
--- NOTE | 2018-05-13 16:56 | NUR ---
DR RIBEIRO TO SEE PATIENT
--- NOTE | 2018-05-13 17:31 | NUR ---
PT HAS MADE SOME PROGRESS TODAY. TOLEATED 30 MINUTE VENT WEANING TRIAL WITHOUT ABG. EG COMPLETED. REMOVED 1 LITER OF FLUID WITH DIALYSIS. CT COMPLETED. FAMILY HAS VISITED
[2018-05-14] VITALS (24 sets, daily range): BP systolic 112–137; BP diastolic 61–83
[2018-05-14 05:00] LABS: HEMATOCRIT 27.1 % (42.0-52.0); HEMOGLOBIN 9.4 gm/dL (14.0-18.0); MCH 30.9 pg (26.0-34.0); MCHC 34.7 g/dL (28.0-37.0); MCV 89.1 fL (80.0-100.0); MPV 9.3 fl. (7.2-11.1); RBC 3.04 mil/uL (4.50-6.00); RDW-CV 16.8 % (10.5-14.5); WBC 10.9 thou/uL (4.0-11.0)
[2018-05-14 05:36] LABS: ALBUMIN 1.6 g/dL (3.4-5.0); CALCIUM 7.5 mg/dL (8.5-10.1); MAGNESIUM 1.7 mg/dL (1.8-2.4); POTASSIUM 3.1 mmol/L (3.5-5.1)
[2018-05-14 05:39] LABS: CREATININE 2.7 mg/dL (0.6-1.3)
--- NOTE | 2018-05-14 07:31 | NUR ---
Pt found to be extubated at 0105. RN had just been in 15 minutes prior for assessment, position change, and other routine care. ET was noted to be at 21 cm during assessment, and BUE were well secured with soft wrist restraints. Pt not in distress, SaO2 mid to upper 90s on RA. Placed on 3L per NC. Pt pulled off NC soon afterward, remains on RA with mid to upper 90s O2 sats. VSS. Pt difficult to understand due to whisper voice and tendancy to mumble. Pt does not orthopaedic general with R hand, but able to do some gross motor movement. Will continue to monitor.
[2018-05-14 08:50] LABS: NEONATAL BILIRUBIN 3.9 mg/dL (0.6-10.6)
--- NOTE | 2018-05-14 19:36 | NUR ---
PT ASSESSMENT CHARTED. VSS THROUGHOUT SHIFT. NO URINE OUTPUT. NPO FOR NOW PT FAILED BEDSIDE SWALLOW AND SPEECH EVAL. MRI FOR WEDNESDAY PER NEURO. EEG DONE. PT ATTEMPTED TO GET OUT OF BED 1X. PT ALERT TO SELF AND IS ABLE TO VERBALIZE HIS BIRTHDAY BUT IS OTHERWISE CONFUSED. PT MOVING LEFT ARM WITHOUT DIFFICULTY BUT PATIENT IS STILL NOT MOVING RIGHT ARM ON DEMAND. BOTH LOWER EXTREMETIES ARE MOVING WITHOUT DIFFICULTY. NO OTHER COMPLAINTS.
[2018-05-15] VITALS (8 sets, daily range): BP systolic 100–155; BP diastolic 53–71
--- NOTE | 2018-05-15 01:17 | NUR ---
Report called to Tuyet LUO. Pt transferred per bed to Tele, room 215. VSS. Pt kept eyes closed during transfer to bed.
--- NOTE | 2018-05-15 02:04 | NUR ---
THIS NURSE RECEIVED REPORT FROM SASCHA RN, PT TRANSFRERRED FROM ICU BED 4 TO TELE BED 215 AT 0130, PT IS NONVERBAL, RESPONDS TO VERBAL AND PAINFUL STIMULI, PT OPENS EYES AND SMILES AT STAFF OCCASIONALLY,TELE MONITOR PLACED, FULL ASSESSMENT INCLUDING SKIN ASSESSMENT COMPLETE, VS OBTAINED, FALL AND SEIZURE PRECAUTIONS IN PLACE
[2018-05-15 07:56] LABS: HEMATOCRIT 28.7 % (42.0-52.0); HEMOGLOBIN 9.6 gm/dL (14.0-18.0); MCH 30.4 pg (26.0-34.0); MCHC 33.3 g/dL (28.0-37.0); MCV 91.3 fL (80.0-100.0); MPV 9.8 fl. (7.2-11.1); RBC 3.14 mil/uL (4.50-6.00); WBC 8.5 thou/uL (4.0-11.0)
[2018-05-15 08:07] LABS: ALBUMIN 1.6 g/dL (3.4-5.0); CALCIUM 8.1 mg/dL (8.5-10.1); CREATININE 3.6 mg/dL (0.6-1.3); POTASSIUM 3.9 mmol/L (3.5-5.1); TOTAL BILIRUBIN 3.7 mg/dL (<0.1-1.0)
--- NOTE | 2018-05-15 15:56 | NUR ---
ASSUMED PT CARE AT 0730. REPORT RECEIVED FROM NURSE. PT IS AOX3. SR ON MONITOR. LYING IN BED. DOES NOT TALK. PT DAUGHTER CAME IN AND SAYS PT ONLY WANTS TO TALK TO HER. DIET CHANGED TO CLEAR LIQUID, DAUGHTERS IN ROOM FED PT. PT ATE 1/3 OF HIS MEAL. MEDICINE ADMINISTERED ORDERED. Q2TURN. R IJ PATENT. SKIN WARM AND INTACT. WILL CONTINUE TO MONITOR.
[2018-05-16] VITALS (7 sets, daily range): BP systolic 102–1320; BP diastolic 66–85
--- NOTE | 2018-05-16 05:18 | NUR ---
PT RESTING IN BED. SR ON MONITOR. PT CONTINUES ON RA. PT REMAINS UNCOMMUNICATIVE WITH STAFF AND ONLY CONVERSING WITH HIS ONE DAUGHTER. PT WILL NOT TAKE MEDS UNLESS DAUGHTER PRESENT. PT TO HAVE HD TODAY. AM LABS DRAWN PENING RESULT TO REVIEW.
[2018-05-16 05:32] LABS: ALBUMIN 1.5 g/dL (3.4-5.0); CALCIUM 8.2 mg/dL (8.5-10.1); CREATININE 4.3 mg/dL (0.6-1.3); POTASSIUM 4.4 mmol/L (3.5-5.1); TOTAL BILIRUBIN 3.6 mg/dL (<0.1-1.0); TOTAL PROTEIN 5.2 g/dL (6.4-8.2)
--- NOTE | 2018-05-16 07:25 | NUR ---
CHANGE OF SHIFT NBEDSIDE REPORT GIVEN PATIENT SEEN AT BEDSIDE, IN BED ASLEEP ASSUMED PATIENT CARE
--- NOTE | 2018-05-16 11:49 | NUR ---
SOAKER ATTEMPTED TO SPEAK TO THE PATIENT TO DISCUSS DISCHARGE PLANNING NEEDS AND SKILLED AT D/C. PATIENT DID NOT OPEN HIS EYES OR SPEAK TO D/C CREAM MAKER. D/C CREAM MAKER CONTACTED THE PATIENT'S DTR CLARK TO DISCUSS DISCHRGE PLANNING NEEDS AND SKILLED AT D/C. PATIENT'S DTR INFORMS THAT SHE IS CONCERNED THAT THE PATIENT 'WILL DO THE SAME THING THAT HE IS DOING HERE, AND THAT HE WILL ONLY SPEAK OR PARTICIPATE WHEN SHE IS AROUND.' SHE IS ALSO CONCERNED THAT HER SISTER MAY NOT BE ABLE TO PROVIDE CARES FOR THE PATIENT AT HOME'. CLARK INFORMS THE D/C CREAM MAKER THAT SHE WOULD LIKE FOR THE PATIENT 'TO GO TO [facility] IT MAY BE HARD FOR HER SISTER TO CARE FOR THEIR FATHER AT HOME UNITL HE IS STRONGER, BUT WILL TALK TO HER SISTER TO SEE IF SHE IS OK WITH IT WELL. CM WILL REMAIN AVAILABLE TO ASSIST AND FOLLOW NEEDED.
--- NOTE | 2018-05-16 14:50 | CON ---
[address] [address] CONSULTATION Name: GENIAERNESTO Room: [address] IN M.R.#: [id number] Admission: 05/09/18 Attend Phys: Maurice Gomez MD Discharge: Date of : 62 Report #: [id number] THIS REPORT FOR: //name// CC: Maurice Gomez FAM unknown [facility] DATE OF SERVICE: 05/10/2018 PRIMARY CARE PHYSICIAN: At [facility]. CHIEF COMPLAINT: Respiratory failure, abnormal troponin level, hypotension. HISTORY OF PRESENT ILLNESS: The patient is a 57-year-old male with a history of end-stage renal disease who apparently was found unresponsive at his home. He had apparently missed his dialysis. He was intubated and was hypotensive and immediately placed on pressors. He required respiratory resuscitation, but never lost his pulse apparently, but his blood pressure was very low in the 60s-70 systolic. His hemoglobin level on presentation was in the 5 range. He has since been placed on fluids and blood transfusions. I am asked to see him because of an elevated cardiac troponin level and assistance with hemodynamic support. At this point in time, the patient is unresponsive and his pupils were not reactive on initial presentation. His presenting ECG showed a sinus rhythm with poor R-wave progression and nonspecific ST segment abnormalities. PAST MEDICAL HISTORY: Significant for the following: End-stage renal disease, malignant hypertension, hepatitis C, anemia, diabetes. PAST SURGICAL HISTORY: AV fistula. ALLERGIES: He has no known drug allergies. CURRENT MEDICATIONS: Include norepinephrine, normal saline, Zosyn, octreotide, Protonix. SOCIAL HISTORY: Not available. REVIEW OF SYSTEMS: Most of this was obtained from chart record and from family members: CARDIOVASCULAR: There is no record of chest discomfort. PULMONARY: He had not been [place] [address] CONSULTATION Name: ERNESTO CORMIER Room: [address]#: [id number] Admission: 05/09/18 Attend Phys: Maurice Gomez MD Discharge: Date of : 62 Report #: [id number] NEUROLOGIC: There is no record of seizures. HEMATOLOGIC: As above. RENAL: Positive history of renal failure. He apparently had missed his dialysis. PHYSICAL EXAMINATION: VITAL SIGNS: Blood pressure is 108/55, respiratory rate is 20, pulse is 93. He is on a ventilator. HEENT: The ET tube is secured to the patient. The patient has no evidence of trauma. NECK: Supple. No jugular venous distention. There is a right IJ line, which has a clean occlusive dressing. CARDIOVASCULAR: Regular. I could not hear a murmur. LUNGS: Breath sounds are coarse bilaterally. ABDOMEN: Thin. EXTREMITIES: Distal extremities are cool. Dorsalis and radial pulses are faint. NEUROLOGIC: Not formally tested. DIAGNOSTIC DATA: His head CT showed no evidence of acute intracranial hemorrhage. Chest x-ray showed right jugular venous central catheter in place. No evidence of pneumothorax, no acute cardiopulmonary abnormality. There is an NG tube. Hemoglobin was 5.1 and then this morning on transfusion it was 7.4. Sodium was 139, potassium 3.8, chloride 97, CO2 is 11, BUN is 37, creatinine is 4.0, lactic acid was 22.3. Troponin I is 1.75. NT-proBNP is 35,000. The pH was 7.405, pCO2 is less than 17, pO2 is 185. IMPRESSION: 1. Respiratory failure. This is probably secondary to anoxia and decreased level of consciousness. 2. Hypotension, requiring pressor support. This is likely secondary to volume loss anemia as well as possible sepsis syndrome. He has been treated with IV blood transfusions as well as supportive therapy with norepinephrine, which I will continue. Presently, he is in a sinus rhythm. 3. Abnormal troponin. He does have evidence of a possible demand type ischemia more likely not due to an acute coronary syndrome as the etiology of his cardiovascular collapse. 4. End-stage renal disease. 5. Gastrointestinal bleeding. He is on aggressive IV proton pump inhibitor therapy. PLAN: From a cardiovascular standpoint, we will check an echocardiogram to rule out pericardial effusion and provide supportive care with pressor agents, [place] [address] CONSULTATION Name: ERNESTO CORMIER Room: [address] IN M.R.#: [id number] Admission: 05/09/18 Attend Phys: Maurice Gomez MD Discharge: Date of : 62 Report #: [id number] this point in time I would not pursue an aggressive invasive evaluation as the patient may have suffered an anoxic brain injury. <ELECTRONICALLY SIGNED> By: Cristopher Wright MD, FACC 05/16/18 1450 1114 1611Cristopher Wright MD, FACC /nt
--- NOTE | 2018-05-16 22:30 | NUR ---
PT NOT RESPONDING TO RN BEGINNING NOC. VSS. SUNDAR HERE AT HS, PT OPENING EYES, VISUALLY TRACKING, AND CONVERSATING WITH DAUGHTER. PT TOLD ANNETTEER HE IS DONE BEING IN HOSPITAL, WANTS TO GO HOME. THIS EQUIPMENT OILER AND SHAHANAUGHER PROVIDED EMOTIONAL SUPPORT AND EDUCATED UNABLE TO BE DC'D UNTIL ABLE TO PARTICIPATE CARES, TO HELP PT HEAL. PT AGREED TO START TAKING PRESCRIBED MEDICATIONS AND COOPERATE WITH ASSESSMENTS. ABLE TO SWALLOW ORDERED KEPPRA AT HS WITH MUCH ENCOURAGEMENT FROM SUNDAR. PT COOPERATIVE WITH AM. OPENING EYES AND REPEATING "YES" REPETIVE WHEN ASKED IF HE WOULD TAKE MEDICATIONS. PT NOTED TO HOLD PILLS IN MOUTH. PT STATES PILLS SWALLOWED, BUT CONTINUED TO CHEW ON PILLS. ASSISTED WITH ONE CONTAINER PUDDING TO HELP CONSUMPTION OF MEDICATIONS. GENERALIZED WEAKNESS, DROWSY, AWAKENS TO STIMULI, RIGHT UPPER EXTREMITY WEAKNER THAN LEFT. PT NEEDS MUCH ASSIST WITH CARES INCLUDING EATING. DENIES PAIN OR DISCOMFORT. NO ATTEMPTS TO GET OOB WITHOUT ASSIST.
[2018-05-17 04:31] VITALS: BP 113/65
--- NOTE | 2018-05-17 07:25 | NUR ---
CHANGE OF SHIFT BEDSIDE REPOT GIVEN PATIENT SEEN AT BEDSIDE, IN BED ASLEEP ASSUMED PATIENT CARE
[2018-05-17 08:00] VITALS: BP 117/73
[2018-05-17 11:09] LABS: CHOLESTEROL 107 mg/dL (<200); TRIGLYCERIDE 82 mg/dL (<150); VLDL 16 mg/dL (<40)
[2018-05-17 11:19] LABS: HDL CHOLESTEROL 13 mg/dL (>40); LDL CHOLESTEROL 78 mg/dL (<100); TC:HDL 8.2 Ratio (Not establshd)
[2018-05-17 11:20] LABS: SERUM ASSESSMENT Clear
[2018-05-17 12:35] VITALS: BP 117/70
--- NOTE | 2018-05-17 13:00 | NUR ---
Rehab consult placed
--- NOTE | 2018-05-17 14:49 | EEG ---
[address] [address] EEG STUDY REPORT Name: ERNESTO CORMIER Room: [address] IN M.R.#: [id number] Admission: 05/09/18 Attend Phys: Maurice Gomez MD Discharge: Date of : 62 Report #: [id number] THIS REPORT FOR: //name// CC: Maurice Gomez [facility] DATE OF SERVICE: 05/13/2018 This patient's EEG was done for comparison. This EEG was done by placing the electrodes by standard 10-20 system of electrode placement. This has continued to be very severely asymmetrical activity. On the right side, the background activity is about 6-7 Hz and 15 microvolts. On the left side, the patient continued to demonstrate what looks like epileptiform activity. They do look like periodic lateralizing epileptiform activity. Photic stimulation is unremarkable. IMPRESSION: This patient's EEG continued to be severely abnormal. It appeared to be showing periodic lateralizing epileptiform discharges on the left cerebral hemisphere. These are prominent epileptiform discharges, but the patient clinically does not have any further seizure. It is recommended that the patient be further worked up for PLEDs or any other focal lesions in the left cerebral hemisphere. <ELECTRONICALLY SIGNED> By: Lior Campos MD 05/17/18 1449 1522 [id number] darlene Alvarado
--- NOTE | 2018-05-17 14:49 | EEG ---
[address] [address] EEG STUDY REPORT Name: ERNESTO CORMIER Room: [address] IN M.R.#: [id number] Admission: 05/09/18 Attend Phys: Maurice Gomez MD Discharge: Date of : 62 Report #: [id number] THIS REPORT FOR: //name// CC: Maurice Gomez [facility] DATE OF SERVICE: 05/14/2018 EEG is being evaluated as a followup of his periodic lateralizing epileptiform discharges on the left side. The patient's background activity on the right side appeared to be about 6-7 Hz and 30 microvolts. Left side continued to demonstrate periodic lateralizing epileptiform discharges. Photic stimulation is unremarkable. IMPRESSION: This patient's EEG continued to demonstrate periodic lateralized epileptiform discharges on the left side. Discharge is somewhat diminished, but still present in significant amount. Thank you very much for this referral. <ELECTRONICALLY SIGNED> By: Lior Campos MD 05/17/18 1449 1104 [id number] Campos MD /nt
--- NOTE | 2018-05-17 14:49 | EEG ---
[address] [address] EEG STUDY REPORT Name: GENIAERNESTO Room: [address] IN M.R.#: [id number] Admission: 05/09/18 Attend Phys: Maurice Gomez MD Discharge: Date of : 62 Report #: [id number] THIS REPORT FOR: //name// CC: Maurice Gomez [facility] DATE OF SERVICE: 05/10/2018 This patient is being evaluated for altered mental status. EEG was done by placing the electrode by standard 10-20 system of electrode placement. Both referential and sequential montages were used for recording. Background activity in this patient's EEG on the right side is about 6-7 Hz and 15-20 microvolt. On the left side, the patient demonstrated pretty significant and almost continuous epileptiform activity. IMPRESSION: Severely abnormal EEG, which is consistent with epileptiform activity arising from the left cerebral hemisphere. Further workup is recommended. <ELECTRONICALLY SIGNED> By: Lior Campos MD 05/17/18 1449 1808 [id number] Campos MD /nt
--- NOTE | 2018-05-17 14:49 | EEG ---
[address] [address] EEG STUDY REPORT Name: ERNESTO CORMIER Room: [address] IN M.R.#: [id number] Admission: 05/09/18 Attend Phys: Maurice Gomez MD Discharge: Date of : 62 Report #: [id number] THIS REPORT FOR: //name// CC: Maurice Gomez [facility] DATE OF SERVICE: 05/11/2018 This patient's EEG was done for comparing it with yesterday. In between this patient's EEG, goes pretty close to flat with minimum activity, but on other occasions, epileptiform activity appear and the left cerebral hemisphere and activity appear on the right side, which is about 5 Hz and 30 microvolt. Photic stimulation is unremarkable. IMPRESSION: The patient's EEG continued to be significantly abnormal. It still continued to demonstrate epileptiform activity arising from the right cerebral hemisphere. Epileptiform activity has decreased on the right side, but is still present in considerable amount. Thank you very much for this referral. <ELECTRONICALLY SIGNED> By: Lior Campos MD 05/17/18 1449 1353 1440Lior Campos MD /nt
--- NOTE | 2018-05-17 14:49 | CON ---
[address] [address] CONSULTATION Name: ERNESTO CORMIER Room: [address] IN M.R.#: [id number] Admission: 05/09/18 Attend Phys: Maurice Gomez MD Discharge: Date of : 62 Report #: [id number] THIS REPORT FOR: //name// CC: Maurice Gomez [facility] DATE OF SERVICE: 05/11/2018 HISTORY OF PRESENT ILLNESS: This is a 57-year-old male patient who is unable to provide any history at all. This patient's records were reviewed. I talked to the nurse who was looking after this patient yesterday when the patient was noticed to have seizure. I talked to the nurse again today. The patient was found unresponsive at home. He has multisystem failure at the moment. As I understand from the nurses, he is on 100% oxygen. He is still on pressor support. His laboratory is markedly abnormal, he has a high lactic acid, his creatinine is high, his SGOT, SGPT is high. It is not clear why he was passed out, but he did miss his dialysis as I understand. REVIEW OF SYSTEMS: Extensive. It is also summarized in another oracle wms consultant's note. This patient has numerous medical problems. PAST MEDICAL HISTORY: Positive for end-stage renal disease and his liver function is markedly abnormal. FAMILY HISTORY: Negative for congenital epilepsy. SOCIAL HISTORY: The patient has two sisters and I talked to one of them. PHYSICAL EXAMINATION: Limited. He is sedated with Versed that has to be given because of his seizure activity. Nurses decreased the Versed and that did not make any difference. He has no response of any kind and I cannot get any reaction to his pupil. His vital signs indicate low blood pressure at 88/43, pulse is 110, respiration is 23. LABORATORY DATA: Markedly abnormal. He did have a CT scan on admission, which did not show any acute changes. IMPRESSION: 1. Severe encephalopathy. 2. Severe seizure disorder. 3. Seizure disorder is focal and left-sided lesion needs to be excluded. RECOMMENDATION: 1. MRI if and when he stabilizes. 2. [place] [address] CONSULTATION Name: ERNESTO CORMIER Room: [address] IN [facility].#: [id number] Admission: 05/09/18 Attend Phys: Maurice Gomez MD Discharge: Date of : 62 Report #: [id number] 3. Try to cut back his Versed, but he may not tolerate the decrease in Versed and he may have to be put back on Versed because he still has significant seizure activity on the EEG. 4. Monitor the EEG. The prognosis is very guarded. All of it was discussed with the sister in detail. More than 50 minutes of time was spent taking care of this patient and majority of that time was spent counseling the family and coordinating his care. <ELECTRONICALLY SIGNED> By: Lior Campos MD 05/17/18 1449 1444 1750Lior Campos MD /nt
[2018-05-17 15:30] VITALS: BP 122/73
[2018-05-17 19:14] LABS: GLYCOHEMOGLOBIN (HGB A1C) 5.3 % (4.8-5.6)
[2018-05-17 20:00] VITALS: BP 123/74
[2018-05-18] VITALS: BP 126/77
[2018-05-18 04:00] VITALS: BP 137/74
--- NOTE | 2018-05-18 04:44 | NUR ---
PT RESTING IN BED, APPEARS COMFORTABLE. PT CONTINUES ON RA. PT SR ON MONITOR. PT TO HAVE HD TODAY. CONTINUES WITH SEIZURE PRECAUTIONS. PT HAS BEEN NPO SINCE MIDNIGHT FOR AM STRESS TEST.
--- NOTE | 2018-05-18 07:20 | NUR ---
CHANGE OF SHIFT BEDSIDE REPORT GIVEN PATIENT SEEN AT BEDSIDE, IN BED ASLEPP ASSUMED PATIENT CARE
[2018-05-18 08:00] VITALS: BP 132/77
--- NOTE | 2018-05-18 15:00 | NUR ---
OPTHAMOLOGY CONS CALLED SERVICE RETURNED CALL NURSE TOLD TO HAVE PATIENT F/U OP DUE TO SPECIAL TESTING REQUIRED IN OFFICE
[2018-05-18 16:00] VITALS: BP 155/60
[2018-05-19] VITALS: BP 122/69
[2018-05-19 04:00] VITALS: BP 146/75
--- NOTE | 2018-05-19 05:27 | NUR ---
ASSUMED CARE OF PT AT 1900. PT IS CONFUSED ABOUT TIME AND PLACE. VSS. NO COMPLAINTS OF PAIN. PT HAS A ARGUELLO. PT IS A Q2 TURN. NIH IS 9. PT IS IN SINUS RYTHM ON THE TELEMETRY. PT IS RESTING COMFORTABLY IN BED. RESPIRATIONS ARE EVEN AND NONLABORED. WILL CONTINUE TO MONITOR PT.
[2018-05-19 05:32] LABS: HEMOGLOBIN 9.2 gm/dL (14.0-18.0); MCH 31.2 pg (26.0-34.0); MCHC 34.2 g/dL (28.0-37.0); MCV 91.3 fL (80.0-100.0); MPV 10.4 fl. (7.2-11.1); RBC 2.95 mil/uL (4.50-6.00); RDW-CV 20.1 % (10.5-14.5); WBC 10.1 thou/uL (4.0-11.0)
[2018-05-19 05:46] LABS: ALBUMIN 1.6 g/dL (3.4-5.0); CALCIUM 8.3 mg/dL (8.5-10.1); CREATININE 2.6 mg/dL (0.6-1.3); MAGNESIUM 1.9 mg/dL (1.8-2.4); POTASSIUM 3.7 mmol/L (3.5-5.1); TOTAL BILIRUBIN 3.6 mg/dL (<0.1-1.0); TOTAL PROTEIN 5.7 g/dL (6.4-8.2)
[2018-05-19 08:39] VITALS: BP 127/67
--- NOTE | 2018-05-19 14:43 | NUR ---
INITIAL ASSESSMENT: Pt evaluated for d/c planning needs. Reviewed chart and spoke with nurse, pt and daughter. Pt was living in duplex alone prior to admission to the hospital. Pt's daughter said she is interested in pt going to SNF on d/c from hospital until she is able to find placement for pt and her. Pt was living alone in duplex which has multiple steps. Pt has cane and crutches at home, but has not had home health. Pt and dtr want referrals sent to [facility] for SNF. Asked systems requirements planner to send referrals. Will remain available to assist as needed.
--- NOTE | 2018-05-19 15:57 | NUR ---
SPECIALTY SALES CONSULTANT INFORMED OF NEED TO SEND REFERRALS TO [facility] AND [facility]. D/C DIRECTOR OF PRODUCT DESIGN CONTACTED ANA MARIA WITH [facility] AND LEFT A MESSAGE TO RETURN CALL TO TO DISCUSS BED AVIALABILITY AND ABILITY TO ACCEPT THE PATIENT AT D/C. D/C DIRECTOR OF PRODUCT DESIGN ALSO FAXED THE PATIENT'S FACESHEET, H&P, LABS, PT/OT NOTES, AND MED LIST TO [facility]. D/C DIRECTOR OF PRODUCT DESIGN SPOKE TO [facility] WITH ADMISSIONS AT [facility] TO INFORM OF THE SKILLED REFERRAL. [facility] INFORMS THAT THE FACILITY HAS BED AVAILABILITY AND WILL REVIEW THE REFERRAL AND RETURN CALL. D/C DIRECTOR OF PRODUCT DESIGN FAXED [facility] THE SKILLED REFERRAL. CM WILL REMAIN AVIALABLE TO ASSIST AND FOLLOW NEEDED.
[2018-05-19 16:00] VITALS: BP 150/88
--- NOTE | 2018-05-19 16:41 | CON ---
[facility] [address] [place] [address] CONSULTATION Name: ERNESTO CORMIER Room: [address] IN M.R.#: [id number] Admission: 05/09/18 Attend Phys: Maurice Gomez MD Discharge: Date of : 62 Report #: [id number] THIS REPORT FOR: //name// CC: Maurice Gomez FAM unknown [facility] DATE OF SERVICE: 05/10/2018 REQUESTING PHYSICIAN: Maurice Gomez M.D. REASON FOR CONSULTATION: Assist in providing dialysis. HISTORY OF PRESENT ILLNESS: The patient is a 57-year-old black man with medical history significant for end-stage renal disease. He missed his dialysis on Wednesday and when police was called to check on him, he was found unresponsive with ____ blood. He was admitted with a diagnosis of GI bleed, end-stage renal disease. PAST MEDICAL HISTORY: 1. End-stage renal disease. 2. Diabetes mellitus type 2. 3. Hepatitis C. SOCIAL HISTORY: His drug screen was positive for cocaine in urine. FAMILY HISTORY: Unknown. REVIEW OF SYSTEMS: Unable to obtain due to him being intubated. PHYSICAL EXAMINATION: GENERAL: He is intubated. VITAL SIGNS: His blood pressure reviewed. HEENT: Pupils round. NECK: Supple. LUNGS: Clear. CARDIOVASCULAR: Regular rate. ABDOMEN: Soft. LOWER EXTREMITIES: No edema. LABORATORY DATA: His hemoglobin was 5.1 yesterday on admission. He was given blood. His creatinine was 7.8. His potassium was 7.0, so he was emergently dialyzed yesterday. Today, his potassium 3.8, BUN and creatinine 37 and 4.0 respectively. ASSESSMENT: [facility] [address] [place] [address] CONSULTATION Name: ERNESTO CORMIER Room: [address] IN .R.#: [id number] Admission: 05/09/18 Attend Phys: Maurice Gomez MD Discharge: Date of : 62 Report #: [id number] 1. End-stage renal disease. 2. Altered mental status. 3. Gastrointestinal bleed. 4. History of cocaine. PLAN: Continue dialysis. NEURO STATUS: Assessment per Neurology. Thank you very much for asking my assistance in providing dialysis on this patient. <ELECTRONICALLY SIGNED> By: Kulwinder De La Fuente MD 05/19/18 1641 1615 [id number] De La Fuente MD /nt
--- NOTE | 2018-05-19 16:43 | CARDNUC ---
[place] [address] CARDIAC NUCLEAR IMAGING REPORT Name: ERNESTO CORMIER Room: [address] IN [facility]#: [id number] Admission: 05/09/18 Attend Phys: Maurice Gomez, Discharge: Date of : 62 Date of Service: 05/19/18 1643 Report #: [id number] THIS REPORT FOR: //name// APPROVED REPORT Imaging Protocol: Rest Tc-99m/Stress Tc-99m 2 days Study performed: 05/18/2018 13:55:00 Indication: Troponin elevation Patient Location: In-Patient Stress Tech: Ramya Kitchen Stress Nurse: Angelica Rodríguez RN Ht: 5 ft 0 in Wt: 145 lbs BSA: 1.63 m2 BMI: 28.31 Medical History Medical History: resp arrest, nstemi, seizures, eskd, mi, hypertension, diabetes Medications: asa 81, atorvastatin, metoprolol Allergies: unknown Cardiac Risk Factors: age, hypertension, diabetes Exercise History: Sedentary Resting Data Rest SPECT myocardial perfusion imaging was performed in supine position 30 minutes following the intravenous injection of 9.3 mCi of Tc-99m Sestamibi. Time of rest injection: 10:00 The images were gated to evaluate regional wall motion and calculate left ventricular ejection fraction. Administration Route: IV Administration Site: Other Pharmacologic Stress Pharmacologic stress test was performed by injecting Regadenoson 0.4 mg IV push over 10-15 seconds immediately followed by the intravenous injection of 31.9 mCi of Tc-99m Sestamibi. Time of stress injection: 1120 Administration Route: IV Administration Site: Other Heart Rate at time of stress injection: 82 bpm. Gated Stress SPECT was performed 120 minutes after stress injection. The images were gated to evaluate regional [place] [address] CARDIAC NUCLEAR IMAGING REPORT Name: MODESTOERNESTO Room: [address] IN ..#: [id number] Admission: 05/09/18 Attend Phys: Maurice Gomez, Discharge: Date of : 62 Date of Service: 05/19/18 1643 Report #: [id number] left ventricular ejection fraction. Stress Test Details Stress Test: Pharmacologic stress testing performed using 0.4 mg of regadenoson per 5 mL given IV over 10 seconds. HR Max Heart Rate (APMHR): 164 bpm Resting HR: 77 bpm Target HR (85% APMHR): 139 bpm Max HR Achieved: 82 bpm % of APMHR: 50 Recovery HR: 82 bpm HR response to stress: Normal HR response to stress BP Resting BP: 132/70 mmHg Max BP: 138/62 mmHg Recovery BP: 136/66 mmHg BP response to stress: Normal blood pressure response to stress. ECG Resting ECG: Sinus Rhythm LVH Stress ECG: Sinus Rhythm LVH Arrhythmia: None Recovery ECG: nSR LVH Clinical Reason for Termination: Completed protocol Stress Symptoms: None Exercise duration: 0 min sec Exercise capacity: 1 METs Nurse Comments pt bed bound. unable to walk on treadmill Stress ECG Conclusion negative for ischemia Study Quality Study: Fair Artifact: Moderate Motion artifact Lung Uptake: Normal Study Data At rest, the left ventricular ejection fraction was 38%.. Post stress, the left ventricular ejection was 45%.. SSS: [address] [place] [address] CARDIAC NUCLEAR IMAGING REPORT Name: ERNESTO CORMIER Room: [address] IN [facility]#: [id number] Admission: 05/09/18 Attend Phys: Maurice Gomez, Discharge: Date of : 62 Date of Service: 05/19/18 1643 Report #: [id number] SRS: 7 SDS: 0 TID = 1.10. Perfusion Review of SPECT images at rest demonstrate a large ,severe intensity inferior defect and normal perfusion in other segments. When imaged following vasodilator stress the defect is noted to be fixed, without reversibility, indicating a prior inferior myocardial infarction without ischemia. Images were reviewed using Rebyooleris. Wall Motion inferior hypokinesis Nuclear Conclusion ECG Findings: negative for ischemia Clinical Findings: negative for ischemia Nuclear Findings: negative for ischemia Exercise Capacity: not assessed Left Ventricular Function: abnormal Risk Study: low to moderate This study reveals evidence of a large inferior MS, without ischemia. Mild LV dysfunction. <Conclusion> negative for ischemia <ELECTRONICALLY SIGNED> By: Cristopher Wright MD, FACC 05/19/181642 42 42 Cristopher Wright MD, FACC /INF
--- NOTE | 2018-05-19 18:37 | NUR ---
PT ALERT, KERRI ORIENTATION D/T APHASIA. NIH 10 THIS SHIFT. TELE TRACKING NSR AND ALL VSS ON ROOM AIR. DAUGHTER AT BEDSIDE THROUGHOUT SHIFT. BED ALARM ON AND CALL LIGHT WITHIN REACH. PT AND DAUGHTER EDUCATED ON SAFETY AND PLAN OF CARE. PLEASE SEE ASSESSMENT FOR ADDITIONAL INFORMATION. WILL CONT TO MONITOR
[2018-05-19 20:00] VITALS: BP 123/70
[2018-05-20] VITALS: BP 136/73
[2018-05-20 04:00] VITALS: BP 133/74
--- NOTE | 2018-05-20 07:50 | NUR ---
RECEIVED REPORT AND ASSUMED CARE AT 1900. VSS. CARDIAC MONITORING IN PLACE. PT DENIES ANY COMPLAINTS OF PAIN. ASSESSMENT COMPLETED CHARTED. BED LOCKED IN LOWEST POSITION, CALL LIGHT WITHIN REACH, BED ALARM ON. NIH=10. POSITION CHANGED EVERY TWO HOURS, HEELS OFF LOADED. HOURLY ROUNDING COMPLETED AND ALL NEEDS MET. NURSING WILL CONTINUE TO MONITOR
[2018-05-20 07:52] VITALS: BP 113/62
[2018-05-20] MEDS ORDERED: LACTULOSE20 GM/30 M PO (09:48)
[2018-05-20] MEDS ORDERED: ADULT LOW DOSE81 MG PO (09:48)
[2018-05-20] MEDS ORDERED: LIPITOR10 MG PO (09:48)
[2018-05-20] MEDS ORDERED: IPRAT-ALBUT 0.5-3 ML INH ×2 (09:48→16:29)
[2018-05-20] MEDS ORDERED: CALCIUM ACETAT667 MG PO (09:48)
[2018-05-20] MEDS ORDERED: LOPRESSOR25 PO (09:48)
[2018-05-20] MEDS ORDERED: LISINOPRIL5 MG PO (09:48)
[2018-05-20] MEDS ORDERED: NEXIUM40 MG PO (09:48)
--- NOTE | 2018-05-20 10:41 | NUR ---
PT ALERT AND ABLE TO STATE NAME, OTHERWISE APHASIC. FOLLOWING SIMPLE COMMANDS, NIH 10. TELE TRACKING NSR AND ALL VSS ON ROOM AIR. PT EDUCATED ON SAFETY AND PLAN OF CARE. BED ALARM ON AND CALL LIGHT WITHIN REACH. PT TO DIALYSIS AT APPROX 1030. PLEASE SEE ASSESSMENT FOR ADDITIONAL INFORMATION. WILL CONTINUE TO MONITOR
--- NOTE | 2018-05-20 12:23 | CON ---
[address] [address] CONSULTATION Name: ERNESTO CORMIER Room: [address] IN M.R.#: [id number] Admission: 05/09/18 Attend Phys: Maruice Gomez MD Discharge: Date of : 62 Report #: [id number] THIS REPORT FOR: //name// CC: Maurice Gomez [facility] HISTORY OF PRESENT ILLNESS: This is a 57-year-old gentleman who is currently sedated and intubated. The GI Service has been consulted for evaluation of possible upper GI bleed. The patient is currently not responsive and does not have any family members at bedside; and therefore, history has been obtained from the patient's chart. It appears that the patient has a history of end-stage renal disease and hepatitis C. The patient apparently receives hemodialysis every other day. When the patient did not present for hemodialysis, the dialysis center requested a service check and police were sent to his location. The patient was found lying unconscious in a pool of blood. Since admission, the patient has had no further episodes of hematemesis or hematochezia. There are no previous records of endoscopic evaluation in this hospital. PAST MEDICAL HISTORY: As mentioned above, the patient has a past medical history of end-stage renal disease, on alternate-day hemodialysis. The patient also has history of diabetes, hypertension, hepatitis C and portal hypertension with ascites. Apparently, the patient did get intermittent paracentesis as outpatient. FAMILY HISTORY: Unable to obtain. SOCIAL HISTORY: Alcohol, tobacco and recreational drug use, unable to obtain. REVIEW OF SYSTEMS: Unable to obtain due to the patient's mental status. PHYSICAL EXAMINATION: VITAL SIGNS: Pulse rate 99, respiratory rate 22, blood pressure 97/48 and pulse ox 96% on ventilator. HEENT: Pupils are sluggish and reactive to light. Sclerae are anicteric. Mucous membranes appear slightly dry. The patient is currently unable to withdraw to pain. LUNGS: Clear to auscultation bilaterally. CARDIOVASCULAR: Rate and rhythm regular, S1, S2 present. ABDOMEN: Soft. There is no distention or guarding or fluid thrill present. EXTREMITIES: Poor peripheral pulses and there is no evidence of pitting edema. LABORATORY DATA: Hemoglobin 7.4, hematocrit 22.1 and platelet count 72,000. Sodium 139, potassium 3.8, chloride 97, bicarbonate 11, BUN 37 and creatinine 4. Lactic acid 22.3. AST 10,806, ALT 2854 and alkaline phosphatase [place] [address] CONSULTATION Name: ERNESTO CORMIER Room: [address] IN [facility]#: [id number] Admission: 05/09/18 Attend Phys: Maurice Gomez MD Discharge: Date of : 62 Report #: [id number] head demonstrates no evidence of acute intracranial hemorrhage or other acute intracranial abnormality. ASSESSMENT AND PLAN: This is a 57-year-old male who presented to the hospital in an unresponsive state. Records indicate he has a history of end-stage renal disease and is on alternate-day hemodialysis. The patient also apparently has hepatitis C and cirrhosis. He has had no endoscopic evaluation available in this hospital to know if he has had varices in the past. 1. Upper gastrointestinal bleed. The patient is currently on Protonix drip and we will proceed with EGD for evaluation of possible variceal disease. The patient's platelet count is 72,000, allegating evidence of portal hypertension and therefore possibly varices. Continue to monitor his hemoglobin twice a day. Since the patient is on multiple pressors, I am not going to start him on octreotide at this time. 2. Encephalopathy and altered mental status. The patient may have altered mental status secondary to hepatic encephalopathy. Once the patient's gastrointestinal bleed status has been fully evaluated and established, we can consider starting him on rifaximin and lactulose to see if this improves his mental status. 3. Shock liver. The patient's AST and ALT are highly elevated and this is probably due to his shock. This is expected to improve with supportive care. Continue to monitor CMP daily. The patient was seen and examined in the CCU. I spent about 35 minutes reviewing his records, examining the patient and formulating a plan of care. Further recommendations will be made after the patient's EGD today. <ELECTRONICALLY SIGNED> By: Lavon Bueno MD 05/20/18 1223 2232 [id number] Beuno MD /nt
[2018-05-20 16:00] VITALS: BP 133/68
--- NOTE | 2018-05-20 16:11 | NUR ---
D/C CUP TRIMMING MACHINE OPERATOR SPOKE TO ANA MARIA WITH [facility] TO INFORM THAT PATIENT'S REFERRAL NEEDED TO BE PUT ON HOLD. ANA MARIA IN AGREEMENT. D/C CUP TRIMMING MACHINE OPERATOR ALSO SPOKE TO SHADE AT [facility] TO INFORM OF THE SAME AND SHE INFORMS THAT THE FACILTIY HAS DECLINED THE PATIENT. D/C CUP TRIMMING MACHINE OPERATOR SPOKE TO LOLA, ARCHITECTURAL DESIGN LECTURER AND SHE INFORMS THAT SHE WOULD REVIEW TE REHAB CONSULT. VANNATAMMY RETURNED CALL TO INFORM THAT THE PATIENT HAD BEEN ACCEPTED TO THE REHAB UNIT AND WOULD GO TO ROOM 333. SIL SPOKE TO THE PATIENT'S DTR [place] TO INFORM OF THIS INFO AND SHE IS IN AGREEMENT, AND WILL INFORM HER SISTER OF THE SAME. CM WILL REMAIN AVAILABLE TO ASSIST AND FOLLOW NEEDED.
[2018-05-20] MEDS ORDERED: COLACE100 MG PO (16:23)
[2018-05-20] MEDS ORDERED: KEPPRA750 MG PO (16:32)
[2018-05-20] MEDS ORDERED: PHOSLO667 MG PO (16:34)
[2018-05-20] MEDS ORDERED: PROTONIX40 M1 PO (16:35)
[2018-05-20 16:41] VITALS: BP 139/76
== END 2018-05-20 18:25 | DRG 207 ==
LOC: M.ERS 12:59 → M.2W 15:41 → M.TBA-ER 15:41 → M.ICU 15:41 → M.2W 05-15 01:48
PROVIDERS: Emergency Medicine Emergency Medical Services; Internal Medicine; Internal Medicine Gastroenterology; Internal Medicine Pulmonary Disease; ADMIT Internal Medicine
PROC: 30233K1 Transfusion of Nonautologous Frozen Plasma into Peripheral Vein, Percutaneous Approach (ICD-10-PCS; principal; 2018-05-09)
PROC: 5A1955Z Respiratory Ventilation, Greater than 96 Consecutive Hours (ICD-10-PCS; principal; 2018-05-09)
PROC: 0BH17EZ Insertion of Endotracheal Airway into Trachea, Via Natural or Artificial Opening (ICD-10-PCS; principal; 2018-05-09)
PROC: 30233L1 Transfusion of Nonautologous Fresh Plasma into Peripheral Vein, Percutaneous Approach (ICD-10-PCS; principal; 2018-05-09)
PROC: 30233N1 Transfusion of Nonautologous Red Blood Cells into Peripheral Vein, Percutaneous Approach (ICD-10-PCS; principal; 2018-05-09)
PROC: 02HV33Z Insertion of Infusion Device into Superior Vena Cava, Percutaneous Approach (ICD-10-PCS; principal; 2018-05-09)
PROC: 0DJ08ZZ Inspection of Upper Intestinal Tract, Via Natural or Artificial Opening Endoscopic (ICD-10-PCS; 2018-05-10)
PROC: 5A1D70Z Performance of Urinary Filtration, Intermittent, Less than 6 Hours Per Day (ICD-10-PCS; 2018-05-13)
PROC: 5A1D70Z Performance of Urinary Filtration, Intermittent, Less than 6 Hours Per Day (ICD-10-PCS; 2018-05-18)
DX: J96.01 Acute respiratory failure with hypoxia (principal); J69.0 Pneumonitis due to inhalation of food and vomit; I21.4 Non-ST elevation (NSTEMI) myocardial infarction; I63.9 Cerebral infarction, unspecified; N18.6 End stage renal disease; K72.00 Acute and subacute hepatic failure without coma; R57.8 Other shock; G92 Toxic encephalopathy; K27.4 Chronic or unspecified peptic ulcer, site unspecified, with hemorrhage; R65.11 Systemic inflammatory response syndrome (SIRS) of non-infectious origin with acute organ dysfunction; D68.9 Coagulation defect, unspecified; D62 Acute posthemorrhagic anemia; N17.9 Acute kidney failure, unspecified; G93.1 Anoxic brain damage, not elsewhere classified; K56.7 Ileus, unspecified; I42.9 Cardiomyopathy, unspecified; G40.801 Other epilepsy, not intractable, with status epilepticus; I12.0 Hypertensive chronic kidney disease with stage 5 chronic kidney disease or end stage renal disease; E87.5 Hyperkalemia; K74.60 Unspecified cirrhosis of liver; E11.22 Type 2 diabetes mellitus with diabetic chronic kidney disease; I95.9 Hypotension, unspecified; E11.649 Type 2 diabetes mellitus with hypoglycemia without coma; B19.20 Unspecified viral hepatitis C without hepatic coma; F19.10 Other psychoactive substance abuse, uncomplicated; F14.90 Cocaine use, unspecified, uncomplicated; H43.12 Vitreous hemorrhage, left eye; I65.29 Occlusion and stenosis of unspecified carotid artery; E87.6 Hypokalemia; R74.0 Nonspecific elevation of levels of transaminase and lactic acid dehydrogenase [LDH]; Z91.14 Patient's other noncompliance with medication regimen; Z99.2 Dependence on renal dialysis; Z79.899 Other long term (current) drug therapy

== ENCOUNTER 2018-05-20 16:32 | Inpatient (IN) | payer MEDICARE, OTHER, MEDICAID ==
[~2018-05-20] VITALS: Ht 177.8 cm; Wt 58.6 kg
--- NOTE | ~2018-05-20 | H ---
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 He did also enter with a GI bleed. He was admitted last evening, stabilized, did well through the night. When he was being rounded by Dr. Krzysztof Escobedo this morning, he was noted to have a large amount of bright red blood per rectum with again a known history of GI bleed. He was emergently transferred to the ICU where he was to be medically stabilized. The patient was admitted, but had not been seen by myself prior to his decline. Preadmission screening changes as stated above, did have a GI bleed and was sent off the unit prior to being evaluated by disposition and by acute inpatient rehabilitation. PAST MEDICAL HISTORY: Unknown as unable to complete history and physical. PAST SURGICAL HISTORY: Unknown. REVIEW OF SYSTEMS: Unable to complete. 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 PLAN: 1. We will follow on the acute side as he hopefully can be readmitted to acute inpatient rehabilitation. 2. Plan of care was not initiated due to the above made noted issues. By: 10 1929Dulce Avelar DO /nt
[~2018-05-20 16:32] MED LIST: ADULT LOW DOSE81 MG PO; CALCIUM ACETAT667 MG PO; COLACE100 MG PO; IPRAT-ALBUT 0.5-3 ML INH; KEPPRA750 MG PO; LACTULOSE20 GM/30 M PO; LIPITOR10 MG PO; LISINOPRIL5 MG PO; LOPRESSOR25 PO; NEXIUM40 MG PO
[2018-05-20] MEDS ORDERED: PHOSLO667 MG PO (16:34)
[2018-05-20] MEDS ORDERED: PROTONIX40 M1 PO (16:35)
[2018-05-20 19:18] VITALS: BP 128/73
--- NOTE | 2018-05-21 00:15 | NUR ---
ASSUMED CARES AT 1920. ALERT AND ORIENTED TO SELF ONLY. CVA WITH RIGHT SIDE WEAKNESS. CALM AND PLEASANT. EXPRESSIVE APHASIA. RESPONDING TO QUESTIONS BUT SPEECH GARBLED AT TIMES. PT UNDERSTANDS MOST SIMPLE QUESTIONS BUT SOMETIMES RESPONDS INACCURATELY AND DOES NOT ALWAYS FOLLOW SIMPLE COMMANDS. DIALYSIS FISTULA TO LEFT FOREARM WITH DRESSING, GOOD BRUIT/THRILL. TOOK PILLS WHOLE/HALF IN APPLESAUCE. UNABLE TO FULLY COMPLETE ASSESSMENT QUESTIONING DUE TO APHASIA. NO FAMILY AT BEDSIDE. CALL LIGHT IN REACH AND BED ALARM ON.
[2018-05-21 05:24] LABS: HEMATOCRIT 28.8 % (42.0-52.0); HEMOGLOBIN 9.5 gm/dL (14.0-18.0); MCH 31.4 pg (26.0-34.0); MCV 95.3 fL (80.0-100.0); MPV 11.1 fl. (7.2-11.1); PLATELET COUNT* 84 thou/uL (150-400); RBC 3.03 mil/uL (4.50-6.00); RDW-CV 22.4 % (10.5-14.5)
[2018-05-21 05:42] LABS: CALCIUM 8.4 mg/dL (8.5-10.1); CREATININE 2.6 mg/dL (0.6-1.3); POTASSIUM 3.5 mmol/L (3.5-5.1)
--- NOTE | 2018-05-21 05:48 | NUR ---
PT DOES HAVE NON PRODUCTIVE COUGH. MAX ASSIST X 2 PERSON FOR SAFETY. STAND AND PIVOT. UP TO BSC. DID HAVE MODERATE SOFT STOOL. NURSING ASSISTED WITH CARES. ANURIC. SLEPT LITTLE DUE TO COUGHING THROUGHOUT THE NIGHT. PT IS ABLE TO TURN SELF IN BED. CALL LIGHT IN REACH AND BED ALARM ON.
[2018-05-21 07:00] VITALS: BP 120/64
[2018-05-21 09:25] VITALS: BP 114/77
[2018-05-21 09:52] LABS: EOSINOPHILS 0.3 %; LYMPHOCYTES 11.2 %; MONOCYTES 8.9 %; NUCLEATED RBCS 0 /100WBC; POLYS 78.6 %
[2018-05-21 09:56] LABS: ABSOLUTE BASOPHILS 0.1 thou/uL (0.0-0.2)
[2018-05-21 09:57] LABS: ABSOLUTE LYMPHOCYTES 1.5 thou/uL (0.8-5.3); ABSOLUTE MONOCYTES 1.2 thou/uL (0.0-1.2); ABSOLUTE NEUTROPHILS 10.2 thou/uL (1.6-8.1)
[2018-05-21 09:58] LABS: ANISOCYTOSIS 1+; PLATELET ESTIMATE ADEQUATE
[2018-05-21 10:00] VITALS: BP 78/47
[2018-05-21 10:10] VITALS: BP 62/36
[2018-05-21 10:13] VITALS: BP 78/47
--- NOTE | 2018-05-21 12:02 | NUR ---
ASSUMED CARE AT 0730. ALERT TO SELF. HX OF CVA RT. SIDE WEAKNESS. ALSO APHASIA CAN SPEAK SOME WORDS BUT NOT ALWAYS ABLE TO TELL IF HE IS PROCESSING DENIES PAIN. HAS L FA FISTULA.. PT. IS ON RENAL HEMO DIALYSIS. DOES NOT VOID. STAFF IS FEEDING PT. BREAKFAST THIS A.M. PT. STATES HE NEEDS TO GET ON BSC TO HAVE BM. TRANSFERRED WITH 2 ASSIST AND GAIT BELT DUE TO WEAKNESS. PT. WAS SITTING ON BSC AND INTERNATIONAL CONTROLLER AND P.T. WERE GETTING READY TO GET PT. UP FROM BSC. PT. HAD BLOODY DRAINAGE WITH SOME CLOTS NOTED FROM RECTUM AT 0858. THIS STAFF MEMBER AND IT APPLICATION DEVELOPMENT MANAGER. ASSESSED PT. AND HE CONTINUED TO HAVE LIQUID COMING FROM RECTUM. ASSISTED BACK TO BED AND BRAYDON CARE DONE ALSO A PULLUP APPLIED. VS AT 0925 WERE 114/77 P 77 97% O2 SAT RA. POSITIONED ON L SIDE IN BED DR. UGALDE HERE AND REQUESTS TO SEND PT. TO [facility] FOR CLOSSER MONITORING. VS AT 1000 WERE CHARTED IN GRAPHIC, BP WAS LOWER. PT. HAD MORE BLOODY DRAINAGE FROM RECTUM IN BED ON PADS SOAKING GOWN AND PULLUPS. DR. GREER HAS BEEN CALLED RE DISCHARGE TO ACUTE CARE. PT, TRANSFERRED BY BED TO ROOM 08 IN ICU BY STAFF Cotter AND SODA ROOM OPERATOR AT 1020 REPORT GIVEN TO PHILIPPE Cotter
== END 2018-05-21 10:26 | disposition short-term general hospital (02) | DRG 56 ==
LOC: M.REH 16:32
PROVIDERS: ADMIT Physical Medicine & Rehabilitation
DX: G81.91 Hemiplegia, unspecified affecting right dominant side (principal); I63.9 Cerebral infarction, unspecified; K92.2 Gastrointestinal hemorrhage, unspecified; R47.01 Aphasia; R13.10 Dysphagia, unspecified; K74.60 Unspecified cirrhosis of liver

== ENCOUNTER 2018-05-21 10:25 | Inpatient (IN) | payer MEDICARE, OTHER, MEDICAID ==
[2018-05-21] VITALS (54 sets, daily range): BP systolic 48–123; BP diastolic 24–75
[~2018-05-21 10:25] MED LIST changes: +PHOSLO667 MG PO; +PROTONIX40 M1 PO
[2018-05-21 13:57] LABS: CALCIUM 7.9 mg/dL (8.5-10.1); CREATININE 2.8 mg/dL (0.6-1.3); POTASSIUM 3.6 mmol/L (3.5-5.1)
[2018-05-21 14:05] LABS: ALBUMIN 1.2 g/dL (3.4-5.0); TOTAL BILIRUBIN 2.7 mg/dL (<0.1-1.0); TOTAL PROTEIN 4.2 g/dL (6.4-8.2)
[2018-05-21 15:56] LABS: MCH 31.6 pg (26.0-34.0); MCHC 32.9 g/dL (28.0-37.0); MCV 95.9 fL (80.0-100.0); MPV 10.4 fl. (7.2-11.1); RBC 1.88 mil/uL (4.50-6.00); RDW-CV 15.1 % (10.5-14.5); WBC 7.9 thou/uL (4.0-11.0)
[2018-05-21 16:13] LABS: HEMOGLOBIN 5.9 gm/dL (14.0-18.0)
--- NOTE | 2018-05-22 13:42 | EKG ---
[place] [address] ELECTROCARDIOGRAM REPORT Name: ERNESTO CORMIER Room: [address] DIS IN M.R.#: [id number] Admission: 05/21/18 Attend Phys: Krzysztof Escobedo MD Discharge: 05/21/18 Date of : 62 Report #: [id number] THIS REPORT FOR: //name// [facility] Test Date: 2018-05-21 Test Time: 11:41:08 Pat Name: ERNESTO CORMIER Department: Room: [address] Gender: M Biostatistics Manager: : 1960 Requested By: Krzysztof Escobedo Order Number: [id number] Belen MD: Konrad Du Measurements Intervals [place] Rate: 80 P: 76 LA: 150 QRS: 46 QRSD: 102 T: 33 QT: 409 QTc: 472 Interpretive Statements Sinus rhythm Borderline repolarization abnormality Compared to ECG 05/12/2018 08:39:22 Prolonged QT interval no longer present Electronically Signed On 05-22-2018 13:42:07 FIRE ENGINE OPERATOR by Konrad Du [email or web address] <ELECTRONICALLY SIGNED> By: Konrad Du MD, [facility] 05/22/18 1342 1141 1141 Konrad Du MD, [facility] /EPI
== END 2018-05-21 21:10 | DRG 377 ==
LOC: M.TBA 10:25 → M.ICU 10:35
PROVIDERS: Radiology Diagnostic Radiology
PROC: 30233N1 Transfusion of Nonautologous Red Blood Cells into Peripheral Vein, Percutaneous Approach (ICD-10-PCS; principal; 2018-05-21)
PROC: 30233L1 Transfusion of Nonautologous Fresh Plasma into Peripheral Vein, Percutaneous Approach (ICD-10-PCS; principal; 2018-05-21)
PROC: 30233K1 Transfusion of Nonautologous Frozen Plasma into Peripheral Vein, Percutaneous Approach (ICD-10-PCS; principal; 2018-05-21)
PROC: 06HY33Z Insertion of Infusion Device into Lower Vein, Percutaneous Approach (ICD-10-PCS; 2018-05-21)
DX: K25.4 Chronic or unspecified gastric ulcer with hemorrhage (principal); N18.6 End stage renal disease; J69.0 Pneumonitis due to inhalation of food and vomit; I21.4 Non-ST elevation (NSTEMI) myocardial infarction; D62 Acute posthemorrhagic anemia; G93.40 Encephalopathy, unspecified; I12.0 Hypertensive chronic kidney disease with stage 5 chronic kidney disease or end stage renal disease; I69.351 Hemiplegia and hemiparesis following cerebral infarction affecting right dominant side; E11.22 Type 2 diabetes mellitus with diabetic chronic kidney disease; I46.9 Cardiac arrest, cause unspecified; E11.649 Type 2 diabetes mellitus with hypoglycemia without coma; R57.8 Other shock; K74.60 Unspecified cirrhosis of liver; I95.9 Hypotension, unspecified; K72.90 Hepatic failure, unspecified without coma; E87.5 Hyperkalemia; B19.20 Unspecified viral hepatitis C without hepatic coma; Z79.899 Other long term (current) drug therapy; Z87.891 Personal history of nicotine dependence; Z87.11 Personal history of peptic ulcer disease; Z79.82 Long term (current) use of aspirin; I69.320 Aphasia following cerebral infarction